=== PATIENT | female | born 1945 | race Caucasian/White ===

== ENCOUNTER → 2024-07-25 | Outpatient (CLI) | payer MEDICARE, MEDICAID, SELFPAY ==
--- NOTE | 2024-07-25 09:30 | XR_ITS ---
Examination: Diagnostic digital mammography, unilateral, right Computer aided detection 3-D breast Tomosynthesis, unilateral Date and time of exam: July 25, 2024 0933 hours INDICATIONS: Mammogram February 01, 2024 focal asymmetry upper outer right breast Technique: Nonmagnified MLO, CC views of the right breast have been obtained, reconstructed from 3-D Tomosynthesis images. R2 computer aided detection program utilized for evaluation of suspicious masses and/or abnormal calcifications. 3-D Tomosynthesis images obtained. Findings: Scattered areas of fibroglandular density. Stable focal asymmetry upper outer right breast Impression: BI-RADS category 2: Benign findings Return to yearly follow-up mammography
== END | disposition home or self-care (01) ==
LOC: CDIM 09:18
PROVIDERS: PCP Physician Assistant; Referring Provider Physician Assistant; Visit Provider Physician Assistant
DX: R92.321 Mammographic fibroglandular density, right breast (principal)
CPT/HCPCS: 77061; 77065; G0279

== ENCOUNTER 2024-09-14 08:00 | Day surgery (SDC) | payer MEDICARE, MEDICAID, SELFPAY ==
--- NOTE | 2024-09-13 10:43 | EKG_ITS ---
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
[2024-09-13 10:52] VITALS: BMI 25.0
[2024-09-13 11:34] LABS: Basophils % (Auto) 0 % (0-2.5); Eosinophils # (Auto) 0.1 Thou/mm3 (0.0-0.5); Eosinophils % (Auto) 1 % (0-10); Hematocrit 46.4 % (36.0-46.0); Hemoglobin 15.7 g/dL (12.0-16.0); Immature Granulocytes % (Auto) 0 % (0-0); Immature Granulocytes Auto 0.03 Thou/mm3 (0.00-0.00); Lymphocytes # (Auto) 1.5 Thou/mm3 (1.0-4.8); Lymphocytes % (Auto) 16 % (10-50); Mean Corpuscular HGB Conc 33.8 g/dl (31.0-37.0); Mean Corpuscular Hemoglobin 30.1 pg (25.0-35.0); Mean Corpuscular Volume 89 fL (80-100); Monocytes # (Auto) 0.8 Thou/mm3 (0.0-0.8); Monocytes % (Auto) 9 % (0-12); Neutrophils # (Auto) 6.9 Thou/mm3 (1.8-7.7); Neutrophils % (Auto) 74 % (37-80); Nucleated Red Blood Cell % 0 /100 WBC (0); Platelet Count 319 Thou/mm3 (140-440); RDW Standard Deviation 44.7 fL (36.4-46.3); Red Blood Count 5.21 Miln/mm3 (4.00-5.20); White Blood Count 9.3 Thou/mm3 (3.6-11.0)
[2024-09-13 11:50] LABS: INR 1.1 (0.9-1.3); Partial Thromboplastin Time 25.3 Seconds (22.0-36.0); Prothrombin Time 12.4 Seconds (9.0-12.2)
[2024-09-13 11:52] LABS: Alanine Aminotransferase 33 U/L (10-49); Albumin, Serum 5.9 gm/dL (3.4-4.8); Albumin/Globulin Ratio 2.8 (1.2-2.2); Alkaline Phosphatase 107 U/L (46-116); Anion Gap 12 (7-16); Aspartate Amino Transferase 31 U/L (0-34); BUN/Creatinine Ratio 19 Ratio (12-20); Bilirubin,Total 0.9 mg/dL (0.3-1.2); Blood Urea Nitrogen 15 mg/dL (9-23); Calcium 10.8 mg/dL (8.3-10.6); Calcium (Corrected) 10.8 mg/dL (8.5-10.1); Carbon Dioxide 26.7 mMol/L (20.0-31.0); Chloride 101 mMol/L (98-107); Creatinine (Component) 0.8 mg/dL (0.6-1.3); Globulin 2.1 gm/dL (2.3-3.5); Glucose 128 mg/dL (74-106); Osmolality,Calculated 282 (275-295); Potassium 3.6 mMol/L (3.4-5.1); Sodium 140 mMol/L (136-145); eGFR > 60 See Note
--- NOTE | 2024-09-13 14:59 | SUR.PREOP ---
Cardiac records reviewed with Dr Henry.
--- NOTE | 2024-09-13 15:02 | SUR.PREOP ---
Pt notified to come in at 0800 tomorrow for surgery.
[2024-09-14] VITALS (8 sets, daily range): BP systolic 127–146; BP diastolic 62–76; PULSE 83–96; RESP 15–20; TEMP 36.1–37; O2SAT 95–100; BMI 24.8
[2024-09-14] MEDS: RINGERS LACTATED 1000 ML 1,000 ML 20 ML IV (08:48)
--- NOTE | 2024-09-14 09:10 | CHAP ---
Patient expressed gratitude for prayer before their procedure.
--- NOTE | 2024-09-14 10:25 | SUR.PHASEI ---
1025: Pt. wakes to name then drifts back to sleep, vitals stable, breathing unlabored, no complaint of pain or nausea, dressing to left shoulder CDI, no active bleed noted, cap refill to bilateral fingers less than 3 seconds, bilateral radial pulses strong and regular, report received from MD Henry and Nilay ANTONIO.
--- NOTE | 2024-09-14 10:28 | PD.SUROPNT ---
Date of Procedure 09/14/24 Pre Op Diagnosis 1. Left rotator cuff tear 2 left shoulder impingement syndrome Post Op Diagnosis Same Procedure 1. Excision of the scar tissue and osteophytes from the lateral end of the clavicle 2 acromioplasty 3 repair of rotator cuff 4. Manipulation under anesthesia Findings Refer dictation Procedure Description The patient was given general endotracheal anesthesia. Left shoulder block was given as well. Once satisfactory anesthesia was achieved patient was put in about 45?? sitting position with sandbag underneath the left shoulder blade. The part was thoroughly prepped and draped. A skin incision was made at the AC joint extending proximally towards the neck for a half inches and distally towards the arm for about couple of inches. The skin incision was made over the previously placed eschar. Deeper dissection was carried out. Bleeding vessels were electrocoagulated as and when encountered. The soft tissue was reflected. Following that lateral end of the clavicle was exposed. It revealed a lot of scar tissue and osteophytes which were projecting inferiorly. The deltoid muscle was reflected from the anterior and lateral aspect of the acromial process. Following that with the help of bone rongeur and osteotome the osteophytes was removed. A scar tissue was also excised. With the help of bone rongeur the osteophytes from the current process was removed.. That made more room between the superior surface of the head of the humerus and undersurface of the acromial process. Following that the rotator cuff was inspected. It revealed an oval tear, however most of the fibers were attached to the greater tuberosity. Wound was irrigated with antibiotic solution every 4-5 minutes. The left shoulder was manipulated at this time. Full range of abduction and forward flexion was achieved. The rotator cuff tear was repaired with 2-0 Vicryl. 2 drill holes were made on the acromial process and deltoid muscle was stitched back to it. Some reinforcement sutures were placed. The subcutaneous tissue was then closed with the help of 2-0 Vicryl and 3-0 Vicryl in layers. The skin was closed with thomas. After cleaning the wound with hydrogel proximal solution and sterile dressing was applied. Patient was taken to the recovery room in good condition. Estimated blood loss 10 mL. Prognosis in this case is good. Anesthesia GETA and other Pathology / specimen None Estimated Blood Loss 10 Surgeon Pal De La Paz MD Surgical Staff Operation Date: 09/14/24 10:00 <No data on this case meets the specified criteria>
--- NOTE | 2024-09-14 16:36 | ESHP_ITS ---
RE: MATT LEMON : 1945 DATE OF ADMISSION: 09/14/2024 The patient came to my office on 09/13/2024 for detailed preop history and physical examination. HISTORY OF PRESENT ILLNESS: The patient has pain in the left shoulder. The patient graded intensity of pain to be 8-9/10. Range of motion severely restricted. The patient wants something to be done about it. The patient underwent left rotator cuff repair with Sonali procedure about 8 or 9 years back by myself. Basically, her quality of life and activities of daily living is affected. PAST MEDICAL HISTORY: History of high blood pressure, diabetes mellitus, and cholesterol as well. PAST SURGICAL HISTORY: Include a hysterectomy, both shoulder surgery. The left one was done in 2014 and the right one was done in 2018 by me. The patient also had right trigger thumb release and right cyst removed. DRUG HISTORY: 1. Alendronate. 2. Amlodipine. 3. Atorvastatin. 4. Gabapentin. 5. Hydrochlorothiazide. 6. Pantoprazole. ALLERGIES: NIL KNOWN. FAMILY HISTORY AND SOCIAL HISTORY: The patient denies smoking, drinking, and is not working. PHYSICAL EXAMINATION: GENERAL: Normal built lady. VITAL SIGNS: Pulse 88 per minute. Blood pressure 130/76. NECK: Soft, supple. No mass felt. Trachea is centrally replaced. CARDIOVASCULAR SYSTEM: First and second heart sounds normal. No murmur heard. RESPIRATORY SYSTEM: Bilateral vesicular breath sounds. Chest: Clear. ABDOMEN: Soft, supple, . Bowel sounds present. EXTREMITIES: Left shoulder examination reveals a scar of about 3 inches in size. There is 1+ tenderness. Active range of motion 0 to 80 degrees of abduction, 0 to 70 degrees of forward flexion. Internal rotation is severely restricted. DIAGNOSTIC DATA: MRI scan confirmed a torn rotator cuff with some degree of retraction. Since the patient is symptomatic affecting quality of life, therefore, left rotator cuff repair with Sonali pressure was discussed. I explained that there is a possibility that she may have a scar formation at the lateral end of the clavicle and osteophyte formation, which may be impinging on the rotator cuff. Detailed discussion took place. Risks, benefits, and limitations were explained. ASSESSMENT AND PLAN: 1. Risks with anesthesia were explained and that includes, but not limited to reaction to anesthetic agents, cardiac arrest, rarely it might be fatal. Risks with operation include infection and if that happens, the patient may need further surgical procedure. Other risks include delayed healing wound assessment, etc. 2. No guarantees given regarding outcome of the procedure and no relief of her symptoms. Appropriate lab work was done. DT: 15:14:57 TT: 16:34:00 Ref: [id number] - TID: [id number]
--- NOTE | 2024-09-14 19:11 | PD.ANESPROG ---
Documentation for date of: 09/14/24 ANESTHESIA NOTE: Patient had general LMA anesthesia with L interscalene nerve block for L rotator surgery earlier today. She did well intra-op and in PACU. Block was done using 20 cc of Ropivacaine 0.375%. Gerard Henry MD Anesthesia Progress Note Progress Note Most recent Vital Signs: Last Vital Signs Temp 97.1 F 09/14/24 11:20 Pulse 96 09/14/24 11:20 Resp 20 09/14/24 11:20 BP 146/70 H 09/14/24 11:20 Pulse Ox 95 09/14/24 11:20 O2 Flow Rate 2 09/14/24 10:40
== END 2024-09-14 11:22 | disposition home or self-care (01) ==
PROVIDERS: Anesthesiology; PCP Physician Assistant; Referring Provider Orthopaedic Surgery; Visit Provider Orthopaedic Surgery
PROC: (CPT 23412; principal; 2024-09-14 10:00)
DX: M75.102 Unspecified rotator cuff tear or rupture of left shoulder, not specified as traumatic (principal); M75.42 Impingement syndrome of left shoulder; E11.9 Type 2 diabetes mellitus without complications; Z01.810 Encounter for preprocedural cardiovascular examination; I10 Essential (primary) hypertension
CPT/HCPCS: 23412; 36415; 80053; 85025; 85610; 85730; 93005; A4217; A4649; J0690; J1100; J2250; J2704; J2765; J2795; J3010; J3490; J7120

== ENCOUNTER 2024-09-28 09:51 | Emergency (ER) | payer MEDICARE, MEDICAID, SELFPAY ==
--- NOTE | 2024-09-28 09:55 | EKG_ITS ---
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
[2024-09-28 10:06] VITALS: BP 149/76; PULSE 100; RESP 20; TEMP 36.4; O2SAT 96; BMI 25.0
--- NOTE | 2024-09-28 10:33 | XR_ITS ---
Examination: PA chest single view TECHNIQUE: Upright PA chest single view Exam date and time: September 28, 2024 1048 hours INDICATIONS: Onset chest pain beginning 3 days ago. FINDINGS: Normal heart size No pneumonia or pulmonary edema Moderate osteopenia IMPRESSION: No pneumonia or pulmonary edema
--- NOTE | 2024-09-28 10:33 | PD.EDRME ---
Rapid Medical Screening Exam RME Arrival date/time: 09/28/24 09:51 This is a 79-year-old female presents to the emergency department with complaints of left lateral chest pain. I have greeted and performed a focused initial assessment of this patient. Initial appropriate labs ordered at this time. A comprehensive ED assessment and evaluation of the patient and analysis of all test and completion of medical decision making process will be conducted by additional ED provider. Chief Complaint: Chest Pain Time Seen by Provider: 09/28/24 10:03 Vital signs: Vital Signs Temperature 97.6 F 09/28/24 10:06 Pulse Rate 100 09/28/24 10:06 Respiratory Rate 20 09/28/24 10:06 Blood Pressure 149/76 H 09/28/24 10:06 Pulse Oximetry (%) 96 09/28/24 10:06 Oxygen Delivery Method Room Air 09/28/24 10:06
[2024-09-28 10:59] LABS: Basophils % (Auto) 0 % (0-2.5); Eosinophils # (Auto) 0.1 Thou/mm3 (0.0-0.5); Eosinophils % (Auto) 1 % (0-10); Hematocrit 44.7 % (36.0-46.0); Hemoglobin 15.3 g/dL (12.0-16.0); Immature Granulocytes % (Auto) 0 % (0-0); Immature Granulocytes Auto 0.03 Thou/mm3 (0.00-0.00); Lymphocytes # (Auto) 1.4 Thou/mm3 (1.0-4.8); Lymphocytes % (Auto) 15 % (10-50); Mean Corpuscular HGB Conc 34.2 g/dl (31.0-37.0); Mean Corpuscular Hemoglobin 30.4 pg (25.0-35.0); Mean Corpuscular Volume 89 fL (80-100); Monocytes # (Auto) 0.8 Thou/mm3 (0.0-0.8); Monocytes % (Auto) 8 % (0-12); Neutrophils # (Auto) 7.3 Thou/mm3 (1.8-7.7); Neutrophils % (Auto) 76 % (37-80); Nucleated Red Blood Cell % 0 /100 WBC (0); Platelet Count 290 Thou/mm3 (140-440); RDW Standard Deviation 43.8 fL (36.4-46.3); Red Blood Count 5.04 Miln/mm3 (4.00-5.20); White Blood Count 9.6 Thou/mm3 (3.6-11.0)
[2024-09-28 11:10] LABS: INR 1.1 (0.9-1.3); Partial Thromboplastin Time 24.5 Seconds (22.0-36.0); Prothrombin Time 12.2 Seconds (9.0-12.2)
[2024-09-28 11:12] LABS: Alanine Aminotransferase 32 U/L (10-49); Albumin, Serum 5.5 gm/dL (3.4-4.8); Albumin/Globulin Ratio 2.5 (1.2-2.2); Alkaline Phosphatase 106 U/L (46-116); Anion Gap 10 (7-16); Aspartate Amino Transferase 27 U/L (0-34); B-Type Natriuretic Peptide < 20 pg/mL (0-100); BUN/Creatinine Ratio 14 Ratio (12-20); Bilirubin,Total 0.8 mg/dL (0.3-1.2); Blood Urea Nitrogen 11 mg/dL (9-23); Calcium 10.6 mg/dL (8.3-10.6); Calcium (Corrected) 10.6 mg/dL (8.5-10.1); Carbon Dioxide 26.5 mMol/L (20.0-31.0); Chloride 103 mMol/L (98-107); Creatinine (Component) 0.8 mg/dL (0.6-1.3); Globulin 2.2 gm/dL (2.3-3.5); Glucose 120 mg/dL (74-106); Lipase 43 U/L (12-53); Magnesium 2.3 mg/dL (1.6-2.6); Osmolality,Calculated 277 (275-295); Potassium 3.7 mMol/L (3.4-5.1); Sodium 139 mMol/L (136-145); Total Protein 7.7 gm/dL (5.7-8.2); Troponin I < 0.002 ng/mL (0.0-0.045); eGFR > 60 See Note
--- NOTE | 2024-09-28 12:08 | PD.EDCHEST ---
ED Chest Pain RME/HPI General Chief Complaint: Chest Pain Stated Complaint: Chest pain X 2 days, SOB Time Seen by Provider: 09/28/24 10:03 Arrival date/time: 09/28/24 09:51 RME / HPI RME / HPI narrative: 79-year-old female patient with significant history of diabetes mellitus hypertension, came in for evaluation regarding left anterior chest wall pain. Onset of symptoms for the last 2 days as sudden onset of pain to the left anterior chest wall, reproducible with palpation, severity mild. Patient denies any cough denies any shortness of breath denies any diaphoresis. Patient had recent shoulder surgery about 2 weeks ago. Related Data Home Medications ?Medication ?Instructions ?Recorded ?Confirmed pantoprazole 40 mg tablet,delayed 40 mg PO QDAY ##0 12/05/14 09/14/24 release (Protonix) atorvastatin 40 mg tablet (Lipitor) 40 mg PO HS #0 tabs 06/16/17 09/14/24 hydrochlorothiazide 25 mg tablet 25 mg PO QDAY 01/08/21 09/14/24 metformin 1,000 mg tablet 1,000 mg PO QDAY 01/08/21 09/14/24 alendronate 70 mg tablet 70 mg PO QWEEK 01/09/21 09/14/24 amlodipine 10 mg tablet 10 mg PO QDAY 03/01/23 09/14/24 cetirizine 10 mg tablet 10 mg PO QDAY 09/13/24 09/14/24 gabapentin 300 mg capsule 300 mg PO QDAY 09/13/24 09/14/24 ibuprofen 600 mg tablet 600 mg PO Q8H PRN Pain 09/13/24 09/14/24 Previous Rx's ?Medication ?Instructions ?Recorded naproxen 500 mg tablet (Naprosyn) 500 mg PO BID PRN pain #20 tabs 09/28/24 Allergies Allergy/AdvReac Type Severity Reaction Status Date / Time phenytoin Allergy Severe HIVES Verified 09/14/24 08:39 quinine Allergy Severe VOMITING Verified 09/14/24 08:39 sulfamethoxazole Allergy Severe VOMITING Verified 09/14/24 08:39 trimethoprim Allergy Severe VOMITING Verified 09/14/24 08:39 Review of Systems Review of Systems Narrative Review of Systems: Review of system reviewed and within normal limits except mentioned in HPI ED Exam Narrative Physical exam: VITAL SIGNS: Reviewed. GENERAL APPEARANCE: Alert and interactive, follows commands, no acute distress, HEAD AND FACE: Non-traumatic. ENT: PERRL, pink conjunctivitis, eyelid no trauma, Mucous membrane moist. NECK: + Left anterior chest wall tenderness, no crepitus, no paradoxical movement, no retractions. LUNGS: Clear, well ventilated, symmetric, no rales, no wheezing, no ronchi, no stridor, good breath sounds bilaterally. HEART: Regular rate, regular rhythm, no murmur, no gallops. ABDOMEN: Soft, positive bowel sounds, nondistended, no guarding, nontender, no rebound, no masses, RECTAL: Deferred. GENITAL: Deferred. NEUROLOGICAL: Gross motor function intact sensory function intact, Appropriate for age. MUSCULOSKELETAL: low back nontender, full range of motion. EXTREMITIES: Nontender, full range of motion. SKIN: Color pink, dry, no rash, no lacerations, no abrasions, no contusions. LYMPHATICS: Deferred. Course Quality Measures none Orders Category Date Time Status Special Ed Assistant STAT Care 09/28/24 10:33 Active Continuous Pulse Oximetry ONCE Care 09/28/24 10:33 Active EKG (ED ONLY) *Do not use* NOW Care 09/28/24 09:55 Completed Insert IV STAT Care 09/28/24 10:33 Active EKG (ED Only) Stat Exams 09/28/24 09:55 Draft XR chest 1V portable Stat Exams 09/28/24 10:33 Completed B-Type Natriuretic Peptide Stat Lab 09/28/24 10:46 Completed CBC Stat Lab 09/28/24 10:46 Completed Comprehensive Metabolic Panel Stat Lab 09/28/24 10:46 Completed Lipase Stat Lab 09/28/24 10:46 Completed Magnesium Stat Lab 09/28/24 10:46 Completed Partial Thromboplastin Time Stat Lab 09/28/24 10:46 Completed Prothrombin Time with INR Stat Lab 09/28/24 10:46 Completed Troponin I Stat Lab 09/28/24 10:46 Completed Oxygen Delivery NOW RT 09/28/24 10:33 Active Vital Signs Vital signs: Vital Signs Temperature 97.6 F 09/28/24 10:06 Pulse Rate 100 09/28/24 10:06 Respiratory Rate 20 09/28/24 10:06 Blood Pressure 149/76 H 09/28/24 10:06 Pulse Oximetry (%) 96 09/28/24 10:06 Oxygen Delivery Method Room Air 09/28/24 10:06 Chest Pain MDM Narrative MDM Narrative:: 79-year-old female patient with significant history of diabetes mellitus hypertension, came in for evaluation regarding left anterior chest wall pain. Onset of symptoms for the last 2 days as sudden onset of pain to the left anterior chest wall, reproducible with palpation, severity mild. Patient denies any cough denies any shortness of breath denies any diaphoresis. Patient had recent shoulder surgery about 2 weeks ago. Patient's cardiac workup all came back normal troponin is normal EKG unremarkable, chest x-ray also came back unremarkable. Repeat troponin is not needed patient is having chest wall pain for 2 days. Patient is probably having costochondritis since pain is reproducible on palpation. Patient appears nontoxic and hemodynamically stable. Patient discharged home and instructed to follow-up with primary care provider in 24 to 48 hours. Instructed to return to the emergency department immediately if worsening of symptoms Patient data External records reviewed:: None Clinical information provided by:: patient Social determinants that could affect healthcare access:: none Patient has the following chronic illnesses:: Diabetes hypertension How is presenting disease/condition affected by chronic disease/condition?: exacerbated by Evaluation data The following diagnostics were reviewed and interpreted by me:: lab results, radiology exam(s) and EKG tracing(s) Lab and/or radiology exams considered but not ordered:: None Interpretation Summary: I personally reviewed and interpreted the x-ray of this patient. There is no acute abnormalities found, no infiltrates no pneumothorax no hemothorax normal chest x-ray. Review of other structures was without significant abnormal findings also. I additionally reviewed the radiologist report and agree with the interpretation.. Laboratory workup all came back normal normal troponin. EKG as interpreted by me showed normal sinus rhythm, ventricular rate of 92 bpm, no ST segment elevation or depression noted. Medications / Prescriptions Medications or Prescriptions considered but not ordered:: None Medication administrations:: None Consultations Consultation(s) initiated? (list below): No Diagnosis Chest Pain Differential Diagnosis: pneumothorax, atypical chest pain and costochondritis Most likely diagnosis given after review of the tests above:: Costochondritis Admission Indicated Admission indicated?: not indicated Explain why admission is indicated or not indicated:: Stable Admission Request Was there a request for admission?: No Disposition Plan Disposition Plan: Discharge Discharge Attestation Discharge Attestation: The patient was given an opportunity to ask questions and understood the discharge instructions. Discharge instructions specifically effects, indications for sooner follow up or return to the emergency department, and the expected course of current diagnosis. Patient condition: Stable Discharge Plan Plan Patient Disposition: HOME (Self Care) Disposition Comment: stable Prescriptions/Referrals Prescriptions/Med Rec: New naproxen [Naprosyn] 500 mg tablet 500 mg PO BID PRN (Reason: pain) Qty: 20 0RF No Action amlodipine 10 mg tablet 10 mg PO QDAY pantoprazole [Protonix] 40 MG tablet,delayed release (DR/EC) 40 mg PO QDAY Qty: 0 Patient Comments: TO SUPPRESS GASTRIC SECRETIONS atorvastatin [Lipitor] 40 MG tablet 40 mg PO HS Qty: 0 metformin 1,000 mg Tablet 1,000 mg PO QDAY hydrochlorothiazide 25 mg tablet 25 mg PO QDAY alendronate 70 mg tablet 70 mg PO QWEEK cetirizine 10 mg Tablet 10 mg PO QDAY gabapentin 300 mg Capsule 300 mg PO QDAY ibuprofen 600 mg Tablet 600 mg PO Q8H PRN (Reason: Pain) Problem List Clinical Impression: Costochondritis Patient/Caregiver Discharge Instructions Discharge Activity: activity as tolerated Education Materials: ED Chest Wall Pain, Costochondritis Additional Instructions: Thank you for the opportunity for serving you today. You are stable for discharged . You are advised to: Follow-up with your marketing lead as instructed Return to ED for worsening of symptoms Increase oral fluids Take medication as prescribed Print Language: Latvian Stand Alone Forms: [employer] Award Info., Patient Portal Info Letter
[2024-09-28 12:30] VITALS: BP 125/73; PULSE 86; RESP 18; TEMP 36.5; O2SAT 97
== END 2024-09-28 12:30 | disposition home or self-care (01) ==
LOC: SERX 12:15
PROVIDERS: Nurse Practitioner Primary Care; Emergency Provider Emergency Medicine; PCP Physician Assistant
DX: M94.0 Chondrocostal junction syndrome [Tietze] (principal); E11.9 Type 2 diabetes mellitus without complications; I10 Essential (primary) hypertension
CPT/HCPCS: 36415; 71045; 80053; 83690; 83735; 83880; 84484; 85025; 85610; 85730; 93005; 99283

== ENCOUNTER 2025-07-31 01:14 | Inpatient (IN) | payer MEDICARE, MEDICAID, SELFPAY ==
[2025-07-31] VITALS (13 sets, daily range): BP systolic 123–153; BP diastolic 60–75; PULSE 82–103; RESP 16–96; TEMP 36.1–36.8; O2SAT 89–98; BMI 26.9; BMI 26.8; BMI 11.0
--- NOTE | 2025-07-31 | XR_ITS ---
Examination: MRI lumbar spine without contrast Date and time of exam: July 31, 2025, 1118 hours, comparison April 05, 2024 INDICATIONS: Severe lower back pain after injury yesterday TECHNIQUE: Multiple MRI axial sagittal images lumbar spine FINDINGS: Adequate alignment lumbar vertebral bodies No lumbar fracture Diffuse lumbar disc desiccation. Moderate degenerative disc disease L1-2, L2-L3, L5-S1 L5-S1 6 mm central lumbar disc bulge contiguous with the S1 nerve roots L4-L5 severe overall spinal stenosis, axial image 5, 5 mm central lumbar disc bulge, facet arthropathy and thickening of ligamentum flavum circumferentially severely narrowing the thecal sac L3-L4 no disc protrusion L2-L3 foraminal disc bulges but no ganglionic compression L1-L2 no disc protrusion Impression: L5-S1 6 mm central lumbar disc bulge contiguous with the right and left S1 nerve roots L4-L5 severe overall spinal stenosis as above
--- NOTE | 2025-07-31 01:23 | PD.EDBACK ---
ED Back Injury Pain RME/HPI General Chief Complaint: Back Pain/Injury Stated Complaint: BACK PAIN Time Seen by Provider: 07/31/25 01:23 Arrival date/time: 07/31/25 01:14 RME / HPI RME / HPI Narrative: Dr. Kang?s Main ED Evaluation: 80yo female KATIUSKA from home presents to the ED for a chief complaint of lower back pain x 1600. Patient states she started having lower back spasms at 1600 after she was doing back stretches that were suggested by physical therapy. Patient denies any falls or injuries. Denies any abdominal pain or any other associated symptoms. Denies any history of similar symptoms. Patient denies fecal or urinary retention or incontinence. No radiation of pain down the legs. Related Data Home Medications ?Medication ?Instructions ?Recorded ?Confirmed pantoprazole 40 mg tablet,delayed 40 mg PO QDAY ##0 12/05/14 09/14/24 release (Protonix) atorvastatin 40 mg tablet (Lipitor) 40 mg PO HS #0 tabs 06/16/17 09/14/24 hydrochlorothiazide 25 mg tablet 25 mg PO QDAY 01/08/21 09/14/24 metformin 1,000 mg tablet 1,000 mg PO QDAY 01/08/21 09/14/24 alendronate 70 mg tablet 70 mg PO QWEEK 01/09/21 09/14/24 amlodipine 10 mg tablet 10 mg PO QDAY 03/01/23 09/14/24 cetirizine 10 mg tablet 10 mg PO QDAY 09/13/24 09/14/24 gabapentin 300 mg capsule 300 mg PO QDAY 09/13/24 09/14/24 ibuprofen 600 mg tablet 600 mg PO Q8H PRN Pain 09/13/24 09/14/24 Previous Rx's ?Medication ?Instructions ?Recorded naproxen 500 mg tablet (Naprosyn) 500 mg PO BID PRN pain #20 tabs 09/28/24 Allergies Allergy/AdvReac Type Severity Reaction Status Date / Time phenytoin Allergy Severe HIVES Verified 09/14/24 08:39 quinine Allergy Severe VOMITING Verified 09/14/24 08:39 sulfamethoxazole Allergy Severe VOMITING Verified 09/14/24 08:39 trimethoprim Allergy Severe VOMITING Verified 09/14/24 08:39 Review of Systems Review of Systems Systems Reviewed: All systems reviewed, normal except as documented Past Medical History Past Medical History NEUROLOGIC: Positive Neurological Disorders and Migraine; Negative Seizures CARDIAC: Positive Cardiac Disorders, Hypercholesterolemia and Hypertension; Negative Congestive Heart Failure RESPIRATORY: Negative Chronic Obstructive Pulmonary Disease (COPD) GASTROINTESTINAL: Positive Gastrointestinal Disorders and Gastroesophageal Reflux Disease GENITOURINARY: Negative Genitourinary Disorders or Renal Disease REPRODUCTIVE: Positive Previous Pregnancies MUSCULOSKELETAL: Positive Musculoskeletal Disorders, Arthritis, Osteoporosis and Fractures (left arm as a child) ENT: Positive Cataracts (bilateral) ENDOCRINE: Positive Endocrine Disorders and Diabetes Mellitus Type 2; Negative Diabetes Mellitus Type 1 HEMATOLOGIC: Negative Blood Disorders OTHER HISTORY: Positive Hospitalization, Shingles, Chicken Pox, Measles and Mumps; Negative Autoimmune Disease, Falls, Blood Transfusions, Anesthesia Reactions, MRSA or Cancer Family History FAMILY HISTORY: Positive Family Surgery; Negative Family Psychiatric Problems, Family Respiratory Disorders, Family Cardiac Disorders, Family Gastrointestinal Problems, Family Cancer or Family Anesthesia Reaction Surgical History SURGICAL: Positive Hysterectomy; Negative Eye Surgery Social History SMOKING STATUS: Never smoker ED Exam Narrative Physical exam: Generally patient is alert oriented in moderate distress secondary to pain, heart regular rate and rhythm, lungs clear to auscultation equal bilaterally, abdomen soft bowel sounds present nondistended nontender neurologic exam shows no focal neurologic deficit. No saddle anesthesia. No fecal or urinary retention or incontinence. Musculoskeletal exam shows the patient palpatory tenderness across the sacrum at the sacroiliac joints bilaterally. Course Quality Measures none Orders Category Date Time Status MRI Screening NOW Care 07/31/25 03:24 Active MR lumbar spine wo con Stat Exams 07/31/25 Ordered CBC Stat Lab 07/31/25 03:24 Ordered CMP [Comprehensive Metabolic Panel] Stat Lab 07/31/25 03:24 Ordered Dexamethasone Inj [Decadron Inj] Med 07/31/25 01:24 Discontinued 10 mg IVP X1 ONE Diazepam Inj [Valium Inj] Med 07/31/25 02:36 Discontinued 5 mg IVP X1 ONE Ketorolac Inj [Toradol Inj] Med 07/31/25 01:24 Discontinued 15 mg IVP X1 ONE Morphine* Inj Med 07/31/25 01:24 Discontinued 4 mg IVP X1 ONE Vital Signs Vital signs: Vital Signs Temperature 98.2 F 07/31/25 01:21 Pulse Rate 100 07/31/25 01:21 Respiratory Rate 28 H 07/31/25 01:21 Blood Pressure 136/60 H 07/31/25 01:21 Pulse Oximetry (%) 92 L 07/31/25 01:21 Oxygen Delivery Method Room Air 07/31/25 01:21 Back Pain / Injury [facility] Narrative [facility] Narrative:: Scribe Attestation: 07/31/25 - Nori Johnston am scribing for and in the presence of Dr. Kang. Patient received Decadron 10 mg IV, Toradol 15 mg IV and morphine 4 mg IV with partial benefit. Patient did receive Valium 5 mg IV with partial benefit. Patient is 80 years old and lives at home alone. There is no clinical evidence for cauda equina syndrome. Patient will require admission to the hospital for further treatment and evaluation for her intractable back pain. I have ordered an MRI of her lumbosacral spine and the patient will need to undergo physical therapy consultation while here in the hospital. I did discuss this case with the hospitalist. Baseline lab work was ordered and pending. Patient data External records reviewed:: [facility] previous records (Per chart review, patient was seen here on 09/28/24 for costochondritis.) and EMS form Clinical information provided by:: patient and EMS Social determinants that could affect healthcare access:: none Patient has the following chronic illnesses:: DM, HTN, HLD How is presenting disease/condition affected by chronic disease/condition?: uneffected by Evaluation data The following diagnostics were reviewed and interpreted by me:: lab results and radiology exam(s) Lab and/or radiology exams considered but not ordered:: none Interpretation Summary: See [facility] Medications / Prescriptions Medications or Prescriptions considered but not ordered:: none Medication administrations:: Medication Administration History Discontinued Medications Dexamethasone Sodium Phosphate (Dexamethasone Sod Phos Inj 10 Mg/Ml Vial) 10 mg IVP X1 ONE Stop: 07/31/25 01:25 Last Admin: 07/31/25 01:46 Dose: 10 mg Documented By: KASEY Diazepam (Diazepam Inj 5 Mg/Ml Vial 2 Ml) 5 mg IVP X1 ONE Stop: 07/31/25 02:37 Ketorolac Tromethamine (Ketorolac Inj 30 Mg/Ml Vial) 15 mg IVP X1 ONE Stop: 07/31/25 01:25 Last Admin: 07/31/25 01:48 Dose: 15 mg Documented By: KASEY Morphine Sulfate (Morphine Sulf Inj 4 Mg/Ml Vial) 4 mg IVP X1 ONE Stop: 07/31/25 01:25 Last Admin: 07/31/25 01:48 Dose: 4 mg Documented By: CB see above Consultations Consultation(s) initiated? (list below): No Diagnosis Differential diagnosis back pain/injury: other (See MDM) Most likely diagnosis given after review of the tests above:: see clinical impression below Admission Indicated Admission indicated?: indicated Admission Request Was there a request for admission?: Yes Admission Attestation Admission request attestation: Discussed case with [] from Hospitalist service regarding admission. Discussed patients ED course, exam findings, labs, and radiology results. The Hospitalist [agrees,declines] to accept the patient for admission. Disposition Plan Disposition Plan: Admit Discharge Plan Plan Patient Disposition: Admit Acute Care w/in Hospital Prescriptions/Referrals Prescriptions/Med Rec: No Action amlodipine 10 mg tablet 10 mg PO QDAY pantoprazole [Protonix] 40 MG tablet,delayed release (DR/EC) 40 mg PO QDAY Qty: 0 Patient Comments: TO [employer] atorvastatin [Lipitor] 40 MG tablet 40 mg PO HS Qty: 0 metformin 1,000 mg Tablet 1,000 mg PO QDAY hydrochlorothiazide 25 mg tablet 25 mg PO QDAY alendronate 70 mg tablet 70 mg PO QWEEK cetirizine 10 mg Tablet 10 mg PO QDAY gabapentin 300 mg Capsule 300 mg PO QDAY ibuprofen 600 mg Tablet 600 mg PO Q8H PRN (Reason: Pain) naproxen [Naprosyn] 500 mg tablet 500 mg PO BID PRN (Reason: pain) Qty: 20 0RF Problem List Clinical Impression: Intractable back pain Patient/Caregiver Discharge Instructions Print Language: Mongolian Stand Alone Forms: [employer] Award Info., Patient Portal Info Letter
[2025-07-31] MEDS: DEXAMETHASONE SOD PHOS INJ 10 MG/ML VIAL IVP (01:46)
[2025-07-31] MEDS: KETOROLAC INJ 30 MG/ML VIAL 15 MG IVP (01:48)
[2025-07-31] MEDS: MORPHINE SULF INJ 4 MG/ML VIAL IVP (01:48)
[2025-07-31] MEDS: DIAZEPAM INJ 5 MG/ML VIAL 2 ML IVP (03:29)
[2025-07-31 03:58] LABS: Basophils # (Auto) 0.0 Thou/mm3 (0.0-0.2); Basophils % (Auto) 0 % (0-2.5); Eosinophils # (Auto) 0.0 Thou/mm3 (0.0-0.5); Eosinophils % (Auto) 0 % (0-10); Hematocrit 41.5 % (36.0-46.0); Hemoglobin 13.7 g/dL (12.0-16.0); Immature Granulocytes Auto 0.12 Thou/mm3 (0.00-0.00); Lymphocytes # (Auto) 0.6 Thou/mm3 (1.0-4.8); Lymphocytes % (Auto) 3 % (10-50); Mean Corpuscular HGB Conc 33.0 g/dl (31.0-37.0); Mean Corpuscular Hemoglobin 29.0 pg (25.0-35.0); Mean Corpuscular Volume 88 fL (80-100); Monocytes # (Auto) 1.2 Thou/mm3 (0.0-0.8); Monocytes % (Auto) 5 % (0-12); Neutrophils # (Auto) 21.0 Thou/mm3 (1.8-7.7); Neutrophils % (Auto) 92 % (37-80); Nucleated Red Blood Cell # 0.00 Thou/mm3 (0.00-0.00); Nucleated Red Blood Cell % 0 /100 WBC (0); Platelet Count 241 Thou/mm3 (140-440); RDW Standard Deviation 46.4 fL (36.4-46.3); Red Blood Count 4.72 Miln/mm3 (4.00-5.20); White Blood Count 23.0 Thou/mm3 (3.6-11.0)
[2025-07-31 04:08] LABS: Alanine Aminotransferase 36 U/L (10-49); Albumin, Serum 4.9 gm/dL (3.4-4.8); Albumin/Globulin Ratio 2.5 (1.2-2.2); Alkaline Phosphatase 114 U/L (46-116); Anion Gap 10 (7-16); Aspartate Amino Transferase 37 U/L (0-34); BUN/Creatinine Ratio 17 Ratio (12-20); Bilirubin,Total 0.7 mg/dL (0.3-1.2); Blood Urea Nitrogen 12 mg/dL (9-23); Calcium 9.2 mg/dL (8.3-10.6); Calcium (Corrected) 9.2 mg/dL (8.5-10.1); Carbon Dioxide 26.6 mMol/L (20.0-31.0); Chloride 103 mMol/L (98-107); Creatinine (Component) 0.7 mg/dL (0.6-1.3); Estimated Creatinine Clearance 54.7 mL/min (>60); Globulin 2.0 gm/dL (2.3-3.5); Glucose 176 mg/dL (74-106); Osmolality,Calculated 283 (275-295); Potassium 3.8 mMol/L (3.4-5.1); Sodium 140 mMol/L (136-145); Total Protein 6.9 gm/dL (5.7-8.2); eGFR > 60 See Note
--- NOTE | 2025-07-31 04:41 | ESHP_ITS ---
<Statement entered by Silvia Russell MD - 07/31/25 05:55> Patient is 80 yr female with PMH of sciatica, osteopenia, DM2 (no insulin), hypertension, hypercholesterolemia, GERD BIBA from home due to back pain. She was completing PT exercises and hyperextended back. Pain onset occurred few hours later. She denies any falls, no incontinence, dysuria. Unable to get up from hospital bed due to the pain. LE sensation intact, normal sphincter tone. WBC 23, no fever, no dyspnea. Will complete workup to rule out infectious etiolgy but most likely reactive to pain. Admit for intractable back pain, ordered PT, topical pain medication, f/u with MRI. Note reviewed, I agree with most of its contents and agree with the patient's care as documented by Dr. Villalba. The patient's management plan was discussed with my attending physician Dr. Putnam. Silvia Russell, PGY-2 Documentation for date of: 07/31/25 HPI History of Present Illness History of present illness: 80yo female pmhx sciatica, osteopenia, DM2 (no insulin), hypertension, hypercholesterolemia, GERD BIBA from home presents to the ED for a chief complaint of intractable lower back pain. Admitted for intractable lower back pain. ED Course Summary Vitals: BP 136/60 HR 100 RR 28 T 98.2F O2 sat 92% RA Labs: WBC 23 CMP wnl Imaging: pending MRI Treatment: Diazepam 5mg, ketorolac 15mg, morphine 4mg, dexamethasone 10mg Upon initial interview, patient is sitting in right lateral decubitus position in the [facility] because laying flat on her back was too uncomfortable for her. She states that she was doing backward bend stretches as recommended per her physical therapist she was referred to by neurologist Dr. Menon for her sciatica. Initially after the exercise she felt fine, then later on she began feeling muscular tightness and worsening pain preventing her ability to ambulate. Patient denies any falls or injuries. Denies any abdominal pain or any other associated symptoms. Denies any history of similar symptoms. Patient denies fecal or urinary retention or incontinence. No radiation of pain down the legs. Denies any motor or sensory deficits. Mobility exclusively limited by lwoer back pain. Code: Full Insulin: Never Medical Hx: Please see one-liner above please Medications: Cetirizine 10mg, Atorvastatin 40mg Allergies: phenytoin (hives), quinine (vomiting), sulfamethoxazole (vomiting), trimethoprim (vomiting) Surgical history: Hysterectomy, multiple bilateral shoulder surgery, multiple wrist surgeries for cysts. Fhx: Noncontributory Living: byself in mobile home, daughter lives in [place] Work: retired, former cleaning lady Alcohol: Denies Cigarettes/tobacco: Denies Recreational drugs: Denies All 12 systems reviewed and were negative except otherwise stated in HPI. Exam Vital Signs Temp Pulse Resp BP Pulse Ox O2 Del Method 98.1 F 102 H 18 142/72 H 92 L Room Air 07/31/25 01:22 07/31/25 01:22 07/31/25 01:07/31/25 01:22 07/31/25 01:07/31/25 01:22 Narrative Exam GENERAL APPEARANCE: AOx4. Right lateral decubitus to minimize discomfort. NAD, activity normal for age, well developed/ well nourished, no cyanosis, pallor, or diaphoresis. HEENT: Normocephalic atraumatic, no facial trauma, neck is supple. Lids/conjunctiva normal. Mucous membranes moist, nares normal, lips/teeth normal uvula midline without oral pharyngeal erythema, exudate or swelling TMs normal bilaterally. No lymphangitis/lymphedema. CARDIAC: Regular rate and rhythm, S1+S2 heard. No murmurs, rubs, or gallops noted RESPIRATORY: respiratory effort normal, speaks in full sentences, no tripod position, no accessory muscle use. Lungs clear to auscultation without rhonchi, wheezes, rales ABDOMINAL: NBS. Soft, ND/NT. No evidence of fluid wave. No pulsatile masses on exam, rebound tenderness, Bonilla sign or pain over Mcburney's point. MUSCLES/EXTREMITIES: No abnormal range of motion, no swelling. DERM: Warm, pink and dry. No rashes, dermatoses, petechiae or lesions. NEUROLOGICAL: Speech is clear and appropriate. Normal level of consciousness. Gait and coordination are normal. 5/5 strength in all extremities. PSYCH: Normal mood and affect. Judgement/competence is appropriate SPINE: Paraspinal tenderness at lumbral sacral area - improved with palpation. No spinal tenderness. No radiating symptoms. No sensory or motor deficits. Sphincter tone intact. Results: Labs 07/31/25 03:37 07/31/25 03:37 Labs: Short CBC 07/31/25 Range/Units 03:37 WBC 23.0 H (3.6-11.0) Thou/mm3 Hgb 13.7 (12.0-16.0) g/dL Hct 41.5 (36.0-46.0) % Plt Count 241 (140-440) Thou/mm3 BMP 07/31/25 03:37 Sodium 140 Potassium 3.8 Chloride 103 Carbon Dioxide 26.6 BUN 12 Creatinine 0.7 Glucose 176 H Calcium 9.2 Liver Function 07/31/25 Range/Units 03:37 Total Bilirubin 0.7 (0.3-1.2) mg/dL AST 37 H (0-34) U/L ALT 36 (10-49) U/L Alkaline Phosphatase 114 (46-116) U/L Albumin 4.9 H (3.4-4.8) gm/dL Quality Measures Quality Measures VTE prophylaxis Advance care planning discussed with:: patient Medications Home Medications and Allergies Home Medications ?Medication ?Instructions ?Recorded ?Confirmed ?Type pantoprazole 40 mg tablet,delayed 40 mg PO QDAY ##0 07/31/25 History release (Protonix) atorvastatin 40 mg tablet (Lipitor) 40 mg PO HS #0 tab s 06/16/17 07/31/25 History hydrochlorothiazide 25 mg tablet 25 mg PO QDAY 1 07/31/25 History metformin 1,000 mg tablet 1,000 mg PO QDAY 01/08/21 History alendronate 70 mg tablet 70 mg PO QWEEK 01/09/2107/07 History amlodipine 10 mg tablet 10 mg PO QDAY 03/01/2307/31 History cetirizine 10 mg tablet 10 mg PO QDAY 09/13/2407/31 History ibuprofen 600 mg tablet 600 mg PO Q8H PRN Pain 09/1307/31/25 History duloxetine 30 mg capsule,delayed 30 mg PO BID 07/31/25 07/31/25 History release pregabalin 100 mg capsule 100 mg PO 3XD 07/31/2507/31 History Allergies Allergy/AdvReac Type Severity Reaction Status Date / Time phenytoin Allergy Severe HIVES Verified 09/14/24 08:39 quinine Allergy Severe VOMITING Verified 09/14/24 08:39 sulfamethoxazole Allergy Severe VOMITING Verified 09/14/24 08:39 trimethoprim Allergy Severe VOMITING Verified 09/14/24 08:39 Visit Medications Acetaminophen (Acetaminophen 325 Mg Tablet) 650 mg PO Q6H PRN PRN Reason: Fever >100.4 or pain 1-3 Stop: 08/30/25 04:29 Hydrocodone Bitart/Acetaminophen (Hydrocodone/Apap 5/325 Tablet) 1 tab PO Q4HR PRN PRN Reason: PAIN SCALE 4-6 (Moderate Stop: 08/05/25 04:29 Docusate Sodium (Docusate Sod 100 Mg Capsule) 100 mg PO QDAY [facility]; Protocol Stop: 08/30/25 08:59 Famotidine (Famotidine Inj 10 Mg/Ml Vial 2 Ml) 20 mg IVP Q12HR [facility] Stop: 08/30/25 08:59 Heparin Sodium (Porcine) (Heparin Sod Inj 5000 Unit/Ml Vial) 5,000 unit SC Q12HR [facility] Stop: 08/14/25 08:59 Lidocaine (Lidocaine 5% 1 Patch) 1 patch TOP Q8HR PRN PRN Reason: pain 1-10 Stop: 08/30/25 04:38 Morphine Sulfate (Morphine Sulf Inj 4 Mg/Ml Vial) 2 mg IVP Q4HR PRN PRN Reason: PAIN SCALE 7-10 (Severe Stop: 08/05/25 04:29 Ondansetron HCl (Ondansetron Inj 2 Mg/Ml Inj 2 Ml) 4 mg IVP Q6H PRN; Protocol PRN Reason: NAUSEA OR VOMITING Stop: 08/30/25 04:29 Discontinued Medications Dexamethasone Sodium Phosphate (Dexamethasone Sod Phos Inj 10 Mg/Ml Vial) 10 mg IVP X1 ONE Stop: 07/31/25 01:25 Last Admin: 07/31/25 01:46 Dose: 10 mg Diazepam (Diazepam Inj 5 Mg/Ml Vial 2 Ml) 5 mg IVP X1 ONE Stop: 07/31/25 02:37 Last Admin: 07/31/25 03:29 Dose: 5 mg Ketorolac Tromethamine (Ketorolac Inj 30 Mg/Ml Vial) 15 mg IVP X1 ONE Stop: 07/31/25 01:25 Last Admin: 07/31/25 01:48 Dose: 15 mg Morphine Sulfate (Morphine Sulf Inj 4 Mg/Ml Vial) 4 mg IVP X1 ONE Stop: 07/31/25 01:25 Last Admin: 07/31/25 01:48 Dose: 4 mg Assessment & Plan Plan 80yo female pmhx sciatica, osteopenia, DM2 (no insulin), hypertension, hypercholesterolemia, GERD BIBA from home presents to the ED for a chief complaint of intractable lower back pain. Admitted for intractable lower back pain. Patient will need PT eval and pain management. #Intractable Back pain #Inability to stand up 2/2 pain #Hx of sciatica #Hx of osteopenia ddx paravertebral muscle cramping, spondylolisthesis, spondylolysis Sitting in right lateral decubitus position in the [facility] because laying flat on her back was too uncomfortable for her. She states that she was doing backward bend stretches as recommended per her physical therapist and was initially fine but gradually got worsening stiffness and pain. Patient denies any falls or injuries. Denies any abdominal pain or any other associated symptoms. Denies any history of similar symptoms. Patient denies fecal or urinary retention or incontinence. No radiation of pain down the legs. Denies any motor or sensory deficits. Mobility exclusively limited by lwoer back pain. Physical exam had interesting results where she had paraspinal tenderness at lumbral sacral area - improved with palpation. No spinal tenderness. No radiating symptoms. No sensory or motor deficits. Sphincter tone intact. She reports her sensitive areas improved with deep palpation of the muscular paraspinal tissues - like a mini- massage. MRI ordered still pending. Of note patient has a history of sciatica but currently completely denies all radiating symptoms. Plan: -PT referral placed -Ambulate patient TID -FUP MRI:___ -Lidocaine 5% patch QD -Tylenol 650mg PO PRN pain 1-3 -Narco 5 Q4hr PRN pain 4-6 -Morphine inj 2mg IVP Q4hr PRN pain 7-10 -Home duloxetine 30mg PO BID -Home Gabapentin 100mg PO TID -Home alendronate 70 mg PO Q7D #Leukocytosis #Bandemia WBC elevated 23. No B symptoms, such as cough, fever, chills, night sweats, or dysuria. Most likely reactive to pain since she has no infectious symptoms. Plan: -FUP CXR -FUP procal:___ -FUP UA:____ -FUP COVID screen:__ -FUP flu:__ #DM2 non insulin Metformin 1000mg home Plan: -ISS step 1 -Carb consistent diet #HTN Plan: -Amlodipine 10mg PO QD -HCTZ 25 mg PO QD #Hx of Hypercholesterolemia Plan: -Atorvastatin 40mg PO HS Health Maintenance: Code status: Full DVT prophylaxis: Heparin subq GI prophylaxis: Famotidine 20mg IVP Q12hr Diet: Carb consistent Beard: Diaper Lines: PIV Supplemental O2: NC Disposition: To med surg for intractable back pain Patient seen and reviewed with attending Dr. Putnam and my amazing senior resident Dr. Silvia Russell. Note written by Leo Villalba MD PGY-1 Attending Provider Attestation/Addendum After examination of the patient and review of the clinical data I feel that this patient needs admission to the hospital for further treatment/evaluation. Plan of care discussed with patient and is in agreement. I Elsi Putnam MD, attest that I was physically present for choudhury portions of evaluation, and examined patient, labs and imagings and plan of care were discussed with IM residents team, and I agree with the findings and plans documented above.
--- NOTE | 2025-07-31 05:13 | XR_ITS ---
EXAMINATION: AP chest single view TECHNIQUE: AP portable upright chest single view Date and time: July 31, 2025, 0552 hours, comparison September 28, 2024 INDICATIONS: Leukocytosis.Today FINDINGS: Normal heart size Subsegmental atelectasis in the right mid and lower lung zone No lobar pneumonia No pulmonary edema Prominent osteopenia IMPRESSION: No lobar pneumonia identified
[2025-07-31] MEDS: ALENDRONATE SODIUM 70 MG TABLET PO (06:17)
[2025-07-31] MEDS: GABAPENTIN 100 MG CAPSULE PO ×2 (06:17→13:41)
[2025-07-31 07:19] LABS: Influenza A Ag Negative; Influenza B Ag Negative
[2025-07-31 07:26] LABS: Magnesium 2.0 mg/dL (1.6-2.6); Phosphorous 3.3 mg/dL (2.4-5.1)
[2025-07-31] MEDS: INSULIN LISPRO (AdmeLOG) 1 UNIT/0.01 ML UNIT SC (08:37)
[2025-07-31] MEDS: DOCUSATE SOD 100 MG CAPSULE PO (09:03)
[2025-07-31] MEDS: DULoxetine HCL 30 MG CAPSULE PO ×2 (09:03→21:51)
[2025-07-31] MEDS: HEPARIN SOD INJ 5000 UNIT/ML VIAL SC ×2 (09:04→21:52)
[2025-07-31] MEDS: FAMOTIDINE INJ 10 MG/ML VIAL 2 ML 20 MG IVP ×2 (09:04→21:51)
[2025-07-31] MEDS: LIDOCAINE 5% 1 PATCH TOP (09:05)
[2025-07-31] MEDS: HYDROcodone/APAP 5/325 TABLET 1 TAB PO ×2 (09:19→17:43)
--- NOTE | 2025-07-31 09:47 | PC.SS ---
Follow up note: MRI pending.
[2025-07-31] MEDS: MORPHINE SULF INJ 4 MG/ML VIAL 2 MG IVP ×3 (10:49→23:04)
--- NOTE | 2025-07-31 11:07 | PC.SS ---
SS met with patient regarding her d/c plan. Pt is alert/oriented. Pt was admitted for Intractable Back Pain. Pt confirmed demographic is correct on facesheet. Pt states she will be changing her phone number to [phone]. Pt resides alone. Pt ambulates independently without assistance or DME. Pt is ok with all ADLs. Pt does not utlize O2 at home. Pt is currently on 2 liters of O2. Patient?s pharmacy of choice is [facility]. Pt named her dtrTricia medical decision maker if she is unable. SS provided verbal d/c options for home or SNF. Patient?s choice is to return home upon d/c. Pt states she has appointments arranged with PCP every 2 months. Tricia Sanchez will provide transportation home. D/C plan: Return home Next of Kin: Tricia Gonzalez dtr, phone# [phone] PCP: Dr. Kimberly Pereyra Address: Correct on facesheet
[2025-07-31] MEDS: PREGABALIN 50 MG CAPSULE 100 MG PO ×2 (14:56→21:51)
--- NOTE | 2025-07-31 16:44 | ESCONSULT_ITS ---
HPI Data of Consult Consult date: 07/31/25 Requesting Physician: Mala Bernardo DO Admitting Provider: Elsi Putnam MD Attending Provider: Davidson Menon MD Primary Care Provider: Kimberly Pereyra PA-C Consult Narrative Reason for consult: intractable back pain History of present illness: 80 yr female with PMH of sciatica, osteopenia, DM2 (no insulin), hypertension, hypercholesterolemia, GERD who presented to the ED due to back pain. Patient was doing Physical therapy and hyperextended her back and later developed progressive back pain. Patient endorses that certain positions exacerbate her pain. Patient has previous MRI from 2023 which shows multiple disc herniations and is currently on Duloxetine and Lyrica. She also has been on physical therapy as an OP. She denies any fever, chills, falls or recent injuries to her back, urinary incontinence or changes in bowel habits. ED Course: Vitals: BP 136/60 HR 100 RR 28 T 98.2F O2 sat 92% RA, Labs: WBC 23 CMP wnl, In the ED patient received Diazepam 5mg, ketorolac 15mg, morphine 4mg, dexamethasone 10mg PMHx: as above SxHx: Hysterectomy, multiple bilateral shoulder surgery, multiple wrist surgeries for cysts. Social Hx: denies x3 Allergies: phenytoin, quinine, sulfamethoxazole, trimethoprim FHx: unknown. cc:: cc: Mala Bernardo DO Exam Vital Signs Temp Pulse Resp BP Pulse Ox O2 Del Method O2 Flow Rate 97.0 F 89 18 131/73 H 92 L Room Air 2 07/31/25 12:00 07/31/25 12:00 07/31/25 12:00 07/31/25 12:00 07/31/25 12:00 07/31/25 12:00 07/31/25 12:00 Narrative Exam Physical Exam GENERAL: NAD, AAOx3, resting comfortably in bed HEENT: Moist mucosa. Eyes open, symmetrical, & clear CARDIO: Heart RRR, no obvious murmurs PULM: No noted coughing/dyspnea CTA B/L, no R/W/R GI: Abdomen soft, nondistended, no pain on palpation. BSx4 SKIN/MSK/EXT: No wounds/rashes/edema/amputations, no pain on palpation. Pedal pulses present B/L NEURO: AAOx3, no focal neuro deficits, able to move all 4 extremities Results Labs 08/03/25 05:36 08/03/25 05:36 Labs: Short CBC 07/31/25 Range/Units 03:37 WBC 23.0 H (3.6-11.0) Thou/mm3 Hgb 13.7 (12.0-16.0) g/dL Hct 41.5 (36.0-46.0) % Plt Count 241 (140-440) Thou/mm3 BMP 07/31/25 03:37 Sodium 140 Potassium 3.8 Chloride 103 Carbon Dioxide 26.6 BUN 12 Creatinine 0.7 Glucose 176 H Calcium 9.2 Liver Function 07/31/25 Range/Units 03:37 Total Bilirubin 0.7 (0.3-1.2) mg/dL AST 37 H (0-34) U/L ALT 36 (10-49) U/L Alkaline Phosphatase 114 (46-116) U/L Albumin 4.9 H (3.4-4.8) gm/dL Quality Measures Quality Measures none Advance care planning discussed with:: patient Medications Home Medications and Allergies Home Medications ?Medication ?Instructions ?Recorded ?Confirmed ?Type pantoprazole 40 mg tablet,delayed 40 mg PO QDAY ##0 07/31/25 History release (Protonix) atorvastatin 40 mg tablet (Lipitor) 40 mg PO HS #0 tab s 06/16/17 07/31/25 History hydrochlorothiazide 25 mg tablet 25 mg PO QDAY 1 07/31/25 History metformin 1,000 mg tablet 1,000 mg PO QDAY 01/08/21 History alendronate 70 mg tablet 70 mg PO QWEEK 01/09/2107/07 History amlodipine 10 mg tablet 10 mg PO QDAY 03/01/2307/31 History cetirizine 10 mg tablet 10 mg PO QDAY 09/13/2407/31 History ibuprofen 600 mg tablet 600 mg PO Q8H PRN Pain 09/1307/31/25 History duloxetine 30 mg capsule,delayed 30 mg PO BID 07/31/25 07/31/25 History release pregabalin 100 mg capsule 100 mg PO 3XD 07/31/2507/31 History Allergies Allergy/AdvReac Type Severity Reaction Status Date / Time phenytoin Allergy Severe HIVES Verified 09/14/24 08:39 quinine Allergy Severe VOMITING Verified 09/14/24 08:39 sulfamethoxazole Allergy Severe VOMITING Verified 09/14/24 08:39 trimethoprim Allergy Severe VOMITING Verified 09/14/24 08:39 Visit Medications Acetaminophen (Acetaminophen 325 Mg Tablet) 650 mg PO Q6H PRN PRN Reason: Fever >100.4 or pain 1-3 Stop: 08/30/25 04:29 Hydrocodone Bitart/Acetaminophen (Hydrocodone/Apap 5/325 Tablet) 1 tab PO Q4HR PRN PRN Reason: PAIN SCALE 4-6 (Moderate Stop: 08/05/25 04:29 Last Admin: 07/31/25 09:19 Dose: 1 tab Amlodipine Besylate (Amlodipine Besylate 5 Mg Tablet) 10 mg PO QDAY SUNI Stop: 08/30/25 08:59 Last Admin: 07/31/25 09:03 Dose: 10 mg Atorvastatin Calcium (Atorvastatin Calcium 20 Mg Tablet) 40 mg PO HS COUNTS INCLUDE 234 BEDS AT THE [facility] Stop: 08/30/25 20:59 Cyclobenzaprine HCl (Cyclobenzaprine 5 Mg Tablet) 5 mg PO TID SUNI Stop: 08/30/25 13:59 Last Admin: 07/31/25 14:56 Dose: 5 mg Dextrose (Dextrose 50%-Water Inj 50 Ml Syringe) 25 ml IV Q15MIN PRN PRN Reason: BG 50-70 responsive npo pt Stop: 08/30/25 05:01 Dextrose (Dextrose 50%-Water Inj 50 Ml Syringe) 50 ml IV Q15MIN PRN PRN Reason: BG <50 OR BG <70 & pt unresponsive Stop: 08/30/25 05:01 Docusate Sodium (Docusate Sod 100 Mg Capsule) 100 mg PO QDAY SUNI; Protocol Stop: 08/30/25 08:59 Last Admin: 07/31/25 09:03 Dose: 100 mg Duloxetine HCl (Duloxetine Hcl 30 Mg Capsule) 30 mg PO BID SUNI Stop: 08/30/25 08:59 Last Admin: 07/31/25 09:03 Dose: 30 mg Famotidine (Famotidine Inj 10 Mg/Ml Vial 2 Ml) 20 mg IVP Q12HR SUNI Stop: 08/30/25 08:59 Last Admin: 07/31/25 09:04 Dose: 20 mg Glucagon (Glucagon Inj 1 Mg Vial) 1 mg IM Q15MIN PRN PRN Reason: BG <70, and no IV access Heparin Sodium (Porcine) (Heparin Sod Inj 5000 Unit/Ml Vial) 5,000 unit SC Q12HR SUNI Stop: 08/14/25 08:59 Last Admin: 07/31/25 09:04 Dose: 5,000 unit Hydrochlorothiazide (Hydrochlorothiazide 12.5 Mg Capsule) 25 mg PO QDAY COUNTS INCLUDE 234 BEDS AT THE [facility] Stop: 08/30/25 08:59 Last Admin: 07/31/25 09:03 Dose: 25 mg Ceftriaxone Sodium/Dextrose (Rocephin/D5w 1gm Iv Premix) 1 gm in 50 mls @ 100 mls/hr IV QDAY COUNTS INCLUDE 234 BEDS AT THE [facility] Stop: 08/07/25 09:39 Insulin Human Lispro (Insulin Lispro (Admelog) 1 Unit/0.01 Ml Unit) 0 unit SC ACHS COUNTS INCLUDE 234 BEDS AT THE [facility]; Protocol Stop: 08/30/25 07:29 Last Admin: 07/31/25 12:42 Dose: Not Given Lidocaine (Lidocaine 5% 1 Patch) 1 patch TOP QDAY SUNI Stop: 08/30/25 08:59 Last Admin: 07/31/25 09:05 Dose: 1 patch Morphine Sulfate (Morphine Sulf Inj 4 Mg/Ml Vial) 2 mg IVP Q4HR PRN PRN Reason: PAIN SCALE 7-10 (Severe Stop: 08/05/25 04:29 Last Admin: 07/31/25 15:40 Dose: 2 mg Ondansetron HCl (Ondansetron Inj 2 Mg/Ml Inj 2 Ml) 4 mg IVP Q6H PRN; Protocol PRN Reason: NAUSEA OR VOMITING Stop: 08/30/25 04:29 Pregabalin (Pregabalin 50 Mg Capsule) 100 mg PO TID COUNTS INCLUDE 234 BEDS AT THE [facility] Stop: 08/30/25 14:44 Last Admin: 07/31/25 14:56 Dose: 100 mg Discontinued Medications Alendronate Sodium (Alendronate Sodium 70 Mg Tablet) 70 mg PO Q7D SUNI Stop: 08/30/25 05:14 Last Admin: 07/31/25 06:17 Dose: 70 mg Dexamethasone Sodium Phosphate (Dexamethasone Sod Phos Inj 10 Mg/Ml Vial) 10 mg IVP X1 ONE Stop: 07/31/25 01:25 Last Admin: 07/31/25 01:46 Dose: 10 mg Diazepam (Diazepam Inj 5 Mg/Ml Vial 2 Ml) 5 mg IVP X1 ONE Stop: 07/31/25 02:37 Last Admin: 07/31/25 03:29 Dose: 5 mg Gabapentin (Gabapentin 100 Mg Capsule) 100 mg PO TID SUNI Stop: 08/30/25 05:59 Last Admin: 07/31/25 13:41 Dose: 100 mg Ketorolac Tromethamine (Ketorolac Inj 30 Mg/Ml Vial) 15 mg IVP X1 ONE Stop: 07/31/25 01:25 Last Admin: 07/31/25 01:48 Dose: 15 mg Lidocaine (Lidocaine 5% 1 Patch) 1 patch TOP Q8HR PRN PRN Reason: pain 1-10 Stop: 08/30/25 04:38 Morphine Sulfate (Morphine Sulf Inj 4 Mg/Ml Vial) 4 mg IVP X1 ONE Stop: 07/31/25 01:25 Last Admin: 07/31/25 01:48 Dose: 4 mg Assessment & Plan Plan 80yo female pmhx sciatica, osteopenia, DM2 (no insulin), hypertension, hypercholesterolemia, GERD BIBA from home presents to the ED for a chief complaint of intractable lower back pain. Admitted for intractable lower back pain. Patient will need PT eval and pain management. #Intractable Back pain #Hx of sciatica #Hx of osteopenia Patient was doing backward bend stretches as recommended per her physical therapist and was initially fine but gradually got worsening stiffness and pain. Patient denies any falls or injuries, denies urinary or bowel incontinence, no radiation down the legs. MRI lumbar spine: Diffuse lumbar disc desiccation. Moderate degenerative disc disease L1-2, L2-L3, L5-S1 L5-S1 6 mm central lumbar disc bulge contiguous with the S1 nerve roots, L4-L5 severe overall spinal stenosis, axial image 5, 5 mm central lumbar disc bulge, facet arthropathy and thickening of ligamentum flavum circumferentially severely narrowing the thecal sac, L3-L4 no disc protrusion, L2-L3 foraminal disc bulges but no ganglionic compression, L1-L2 no disc protrusion Patient has been having this chronically - PT evaluation and to be continued as an outpatient - Transition IV pain medication to PO route as tolerated - Continue home lyrica and duloxetine - Recommend to ambulate the patient as tolerated - From Neurology standpoint can be discharged and can follow up as OP #Leukocytosis #NIDDM2 #Hx of HTN #Hx of Hypercholesterolemia - as per primary team Case discussed with my attending Dr. Sinan Post MD PGY-2 Attending Provider Attestation/Addendum I personally have seen and examined the patient at the bedside and I agreed with the resident's findings, assessment and plan of care. Continue with current management for pain control. Follow-up with me as an outpatient for doing EMG nerve conduction study of both lower extremities. Patient is waiting for rehab placement.
[2025-07-31] MEDS: cefTRIAXone/D5w 1gm IV premix 1 GM/50 ML BAG IV (17:34)
[2025-07-31 17:38] LABS: Collection Type, Urine Clean Catch
[2025-07-31 17:45] LABS: Bacteria,Urine 1+; Bilirubin,Urine Negative (Negative); Blood,Urine 1+ (Negative); Clarity,Urine Turbid (Clear/Hazy); Color,Urine Lt-Yellow (Lt Yel-Yel); Glucose, Urine Negative (Negative); Ketones,Urine Negative (Negative); Leukocyte Esterase,Urine Positive (Negative); Nitrite,Urine Positive (Negative); PH,Urine 6.5 (5.0-7.0); Protein,Urine Negative (Neg - Trace); RBC,Urine 24 /hpf (0-3); Specific Gravity,Urine 1.011 (1.001-1.035); Squamous Epithelial Cell,Urine 1 /hpf (0-5); Urobilinogen,Urine Negative mg/dL (0.0-1.0); WBC,Urine 37 /hpf (0-5)
[2025-07-31 17:52] LABS: Culture Indicated,Urine Yes
--- NOTE | 2025-07-31 17:56 | ESPR_ITS ---
<Statement entered by Song Gibbs MD - 07/31/25 21:04> Patient was seen and examined at bedside. I agree on the assessment and plan on this note as documented by resident Dr Radha Trammell DO PGY1. 80-year-old female with past medical history as below admitted for intractable back pain, requiring IV pain medication. Patient underwent MRI lumbar spine which shows L5-S1 6 mm central lumbar disc bulge continuous with right and left S1 nerve roots, neurology was consulted is following. Patient started on Flexeril, did receive home dose alendronate overnight. Complains of urinary discomfort, dysuria, incontinence and feeling of incomplete bladder voiding, will obtain urine analysis and urine culture, started on IV ceftriaxone. Anticipate discharge in the next 24 hours post neurology recommendations and pain improvement. Case discussed with attending Dr. Mala Teran MD PGY-2 Documentation for date of: 07/31/25 Subjective Subjective Interval history: MRI, Lumbar spine w/o contrast (07/31/2025) showed L5-S1 6 mm central lumbar disc bulge contiguous with the right and left S1 nerve roots, L4-L5 severe overall spinal stenosis PT eval (07/31/2025) showed 10/10 pain bed motility, 4/10 pain on sitting. Muscle spasm while ambulating. Poor standing balance. Functional decline in bed mobility, transfers and ambulation. High fall risk. Recommended rehab placement for skilled therapy Patient's WBC was 23.0 likely in reaction to IV dexamethasone 10mg x1 that she received in ED. Patient complained of dysuria, urinary incontinence, incomplete bladder voiding. UA (07/31/2025): showed yellow turbid urine, urine blood 1+, urine nitrate positive, urine leukocyte esterase positive, urine RBC 24, urine WBC 37, urine bacteria 1+. Bladder Scan Volume (07/31/2025): 433ml Urine culture is pending. Started on IV Ceftriaxone 1g qd (07/31-) Exam Vital Signs Temp Pulse Resp BP Pulse Ox O2 Del Method O2 Flow Rate 97.1 F 82 18 129/75 92 L Room Air 2 07/31/25 16:00 07/31/25 16:00 07/31/25 16:00 07/31/25 16:00 07/31/25 16:00 07/31/25 16:00 07/31/25 16:00 Narrative Exam GENERAL APPEARANCE: AOx4. Right lateral decubitus to minimize discomfort. NAD, activity normal for age, well developed/ well nourished, no cyanosis, pallor, or diaphoresis. HEENT: Normocephalic atraumatic, no facial trauma, neck is supple. Lids/conjunctiva normal. Mucous membranes moist, nares normal, lips/teeth normal uvula midline without oral pharyngeal erythema, exudate or swelling TMs normal bilaterally. No lymphangitis/lymphedema. CARDIAC: Regular rate and rhythm, S1+S2 heard. No murmurs, rubs, or gallops noted RESPIRATORY: respiratory effort normal, speaks in full sentences, no tripod position, no accessory muscle use. Lungs clear to auscultation without rhonchi, wheezes, rales ABDOMINAL: NBS. Soft, ND/NT. No evidence of fluid wave. No pulsatile masses on exam, rebound tenderness, Bonilla sign or pain over Mcburney's point. MUSCLES/EXTREMITIES: No abnormal range of motion, no swelling. DERM: Warm, pink and dry. No rashes, dermatoses, petechiae or lesions. NEUROLOGICAL: Speech is clear and appropriate. Normal level of consciousness. Gait and coordination are normal. 5/5 strength in all extremities. PSYCH: Normal mood and affect. Judgement/competence is appropriate SPINE: Paraspinal tenderness at lumbral sacral area - improved with palpation. No spinal tenderness. No radiating symptoms. No sensory or motor deficits. Sphincter tone intact. Objective Labs 08/01/25 04:59 08/01/25 04:59 Labs: Laboratory Results - last 24 hr 07/31/25 07/31/25 07/31/25 03:37 03:37 03:37 WBC 23.0 H RBC 4.72 Hgb 13.7 Hct 41.5 MCV 88 MCH 29.0 MCHC 33.0 RDW Std Deviation 46.4 H Plt Count 241 Neut % (Auto) 92 H Lymph % (Auto) 3 L Benzie % (Auto) 5 Eos % (Auto) 0 Baso % (Auto) 0 Neut # (Auto) 21.0 H Lymph # (Auto) 0.6 L Benzie # (Auto) 1.2 H Eos # (Auto) 0.0 Baso # (Auto) 0.0 Immature Gran # (Auto) 0.12 H Absolute Nucleated RBC 0.00 Immature Gran % 1 H Nucleated RBC % 0 Sodium 140 Potassium 3.8 Chloride 103 Carbon Dioxide 26.6 Anion Gap 10 BUN 12 Creatinine 0.7 Estim Creat Clear Calc 54.7 L eGFR > 60 BUN/Creatinine Ratio 17 Glucose 176 H Calculated Osmolality 283 Calcium 9.2 Corrected Calcium 9.2 Phosphorus Cancelled 3.3 Magnesium Cancelled 2.0 Total Bilirubin 0.7 AST 37 H ALT 36 Alkaline Phosphatase 114 Total Protein 6.9 Albumin 4.9 H Globulin 2.0 L Albumin/Globulin Ratio 2.5 H Ur Collection Type Urine Color Urine Clarity Urine pH Ur Specific [place] Urine Protein Urine Glucose (UA) Urine Ketones Urine Blood Urine Nitrite Urine Bilirubin Urine Urobilinogen (Auto) Ur Leukocyte Esterase Urine RBC Urine WBC Ur Squamous Epith Cells Urine Bacteria Ur Culture Indicated? Influenza A (Rapid) Influenza B (Rapid) 07/31/25 07/31/25 06:22 16:54 WBC RBC Hgb Hct MCV MCH MCHC RDW Std Deviation Plt Count Neut % (Auto) Lymph % (Auto) Benzie % (Auto) Eos % (Auto) Baso % (Auto) Neut # (Auto) Lymph # (Auto) Benzie # (Auto) Eos # (Auto) Baso # (Auto) Immature Gran # (Auto) Absolute Nucleated RBC Immature Gran % Nucleated RBC % Sodium Potassium Chloride Carbon Dioxide Anion Gap BUN Creatinine Estim Creat Clear Calc eGFR BUN/Creatinine Ratio Glucose Calculated Osmolality Calcium Corrected Calcium Phosphorus Magnesium Total Bilirubin AST ALT Alkaline Phosphatase Total Protein Albumin Globulin Albumin/Globulin Ratio Ur Collection Type Clean Catch Urine Color Lt-Yellow Urine Clarity Turbid A Urine pH 6.5 Ur Specific [place] 1.011 Urine Protein Negative Urine Glucose (UA) Negative Urine Ketones Negative Urine Blood 1+ A Urine Nitrite Positive Urine Bilirubin Negative Urine Urobilinogen (Auto) Negative Ur Leukocyte Esterase Positive Urine RBC 24 H Urine WBC 37 H Ur Squamous Epith Cells 1 Urine Bacteria 1+ A Ur Culture Indicated? Yes Influenza A (Rapid) Negative Influenza B (Rapid) Negative Quality Measures Quality Measures none Advance care planning discussed with:: patient and other Assessment & Plan Assessment Current Active Medications: Generic Name Dose Route Start Last Admin Trade Name Freq PRN Reason Stop Dose Admin Acetaminophen 650 mg 07/31/25 04:30 Acetaminophen 325 Mg Tablet PO 08/30/25 04:29 Q6H PRN Fever >100.4 or pain 1-3 Hydrocodone Bitart/Acetaminophen 1 tab 07/31/25 04:30 07/31/25 17:43 Hydrocodone/Apap 5/325 Tablet PO 08/05/25 04:29 1 tab Q4HR PRN Administration PAIN SCALE 4-6 (Moderate Amlodipine Besylate 10 mg 07/31/25 09:00 07/31/25 09:03 Amlodipine Besylate 5 Mg Tablet PO 08/30/25 08:59 10 mg QDAY SUNI Administration Atorvastatin Calcium 40 mg 07/31/25 21:00 Atorvastatin Calcium 20 Mg Tablet PO 08/30/25 20:59 HS SUNI Cyclobenzaprine HCl 5 mg 07/31/25 14:00 07/31/25 14:56 Cyclobenzaprine 5 Mg Tablet PO 08/30/25 13:59 5 mg TID SUNI Administration Dextrose 25 ml 07/31/25 05:02 Dextrose 50%-Water Inj 50 Ml Syringe IV 08/30/25 05:01 Q15MIN PRN BG 50-70 responsive npo pt Dextrose 50 ml 07/31/25 05:02 Dextrose 50%-Water Inj 50 Ml Syringe IV 08/30/25 05:01 Q15MIN PRN BG <50 OR BG <70 & pt unresponsive Docusate Sodium 100 mg 07/31/25 09:00 07/31/25 09:03 Docusate Sod 100 Mg Capsule PO 08/30/25 08:59 100 mg QDAY SUNI Administration Protocol Duloxetine HCl 30 mg 07/31/25 09:00 07/31/25 09:03 Duloxetine Hcl 30 Mg Capsule PO 08/30/25 08:59 30 mg BID SUNI Administration Famotidine 20 mg 07/31/25 09:00 07/31/25 09:04 Famotidine Inj 10 Mg/Ml Vial 2 Ml IVP 08/30/25 08:59 20 mg Q12HR SUNI Administration Glucagon 1 mg 07/31/25 05:02 Glucagon Inj 1 Mg Vial IM Q15MIN PRN BG <70, and no IV access Heparin Sodium (Porcine) 5,000 unit 07/31/25 09:00 07/31/25 09:04 Heparin Sod Inj 5000 Unit/Ml Vial SC 08/14/25 08:59 5,000 unit Q12HR SUNI Administration Hydrochlorothiazide 25 mg 07/31/25 09:00 07/31/25 09:03 Hydrochlorothiazide 12.5 Mg Capsule PO 08/30/25 08:59 25 mg QDAY SUNI Administration Ceftriaxone Sodium/Dextrose 1 gm in 50 mls @ 100 mls/hr 07/31/25 09:40 07/31/25 17:34 Rocephin/D5w 1gm Iv Premix IV 08/07/25 09:39 100 mls/hr QDAY SUNI Administration Insulin Human Lispro 0 unit 07/31/25 07:30 07/31/25 16:58 Insulin Lispro (Admelog) 1 Unit/0.01 Ml Unit SC 08/30/25 07:29 Not Given ACHS SUNI Protocol Lidocaine 1 patch 07/31/25 09:00 07/31/25 09:05 Lidocaine 5% 1 Patch TOP 08/30/25 08:59 1 patch QDAY SUNI Administration Morphine Sulfate 2 mg 07/31/25 04:30 07/31/25 15:40 Morphine Sulf Inj 4 Mg/Ml Vial IVP 08/05/25 04:29 2 mg Q4HR PRN Administration PAIN SCALE 7-10 (Severe Ondansetron HCl 4 mg 07/31/25 04:30 Ondansetron Inj 2 Mg/Ml Inj 2 Ml IVP 08/30/25 04:29 Q6H PRN NAUSEA OR VOMITING Protocol Pregabalin 100 mg 07/31/25 14:45 07/31/25 14:56 Pregabalin 50 Mg Capsule PO 08/30/25 14:44 100 mg TID SUNI Administration Plan 80yo female pmhx sciatica, osteopenia, DM2 (no insulin), hypertension, hypercholesterolemia, GERD BIBA from home presents to the ED for a chief complaint of intractable lower back pain. Admitted for intractable lower back pain. Patient will need PT eval and pain management. #Intractable Back pain #Hx of sciatica #Hx of osteopenia -ddx paravertebral muscle cramping, spondylolisthesis, spondylolysis -Sitting in right lateral decubitus position in the [facility] [place] because laying flat on her back was too uncomfortable for her. She states that she was doing backward bend stretches as recommended per her physical therapist and was initially fine but gradually got worsening stiffness and pain. Patient denies any falls or injuries. Denies any abdominal pain or any other associated symptoms. Denies any history of similar symptoms. Patient denies fecal or urinary retention or incontinence. No radiation of pain down the legs. Denies any motor or sensory deficits. Mobility exclusively limited by lwoer back pain. Physical exam had interesting results where she had paraspinal tenderness at lumbral sacral area - improved with palpation. No spinal tenderness. No radiating symptoms. No sensory or motor deficits. Sphincter tone intact. She reports her sensitive areas improved with deep palpation of the muscular paraspinal tissues - like a mini-massage. MRI ordered still pending. Of note patient has a history of sciatica but currently completely denies all radiating symptoms. -MRI, Lumbar spine w/o contrast (07/31/2025): L5-S1 6 mm central lumbar disc bulge contiguous with the right and left S1 nerve roots, L4-L5 severe overall spinal stenosis as above -PT eval (07/31/2025): 10/10 pain bed motility, 4/10 pain on sitting. Muscle spasm while ambulating. Poor standing balance. Functional decline in bed mobility, transfers and ambulation. High fall risk. Recommended rehab placement for skilled therapy Plan: -PT referral placed -Ambulate patient TID -Lidocaine 5% patch QD -Tylenol 650mg PO PRN pain 1-3 -Narco 5 Q4hr PRN pain 4-6 -Morphine inj 2mg IVP Q4hr PRN pain 7-10 -Home duloxetine 30mg PO BID -Home Gabapentin 100mg PO TID -Home alendronate 70 mg PO Q7D #UTI #Leukocytosis -In admission, Patient's WBC was 23.0 likely in reaction to IV dexamethasone 10mg x1 that she received in ED. -Patient complained of dysuria, urinary incontinence, incomplete bladder voiding. -UA (07/31/2025): showed yellow turbid urine, urine blood 1+, urine nitrate positive, urine leukocyte esterase positive, urine RBC 24, urine WBC 37, urine bacteria 1+. -Bladder Scan Volume (07/31/2025): 433ml Plan: -Pending UCx -Started on IV Ceftriaxone 1g qd (07/31-) #DM2 non insulin Metformin 1000mg home Plan: -ISS step 1 -Carb consistent diet #Hx of HTN Plan: -Amlodipine 10mg PO QD -HCTZ 25 mg PO QD #Hx of Hypercholesterolemia Plan: -Atorvastatin 40mg PO HS Health Maintenance: Code status: Full DVT prophylaxis: Heparin subq GI prophylaxis: Famotidine 20mg IVP Q12hr Diet: Carb consistent Beard: Diaper Lines: PIV Supplemental O2: NC Disposition: To med surg for intractable back pain Assessment and plan discussed with my attending physician Dr. Bernardo and Dr. Gibbs (PGY-2) Dr. Trammell (PGY-1) - Internal medicine resident Attending Provider Attestation/Addendum Mala Johnston DO, attest that I was physically present for the choudhury portions of the service and evaluated the patient with the resident and I reviewed and discussed the case with the resident and agree with the resident's findings and plans of care as documented above Patient seen and evaluated this a.m. She had worked with physical therapy this morning and stated that she was able to sit up and stand. However, patient reports pain and back spasms with stretching. She denies any saddle anesthesia or bilateral lower extremity numbness or tingling. She denies any loss of bowel or bladder control. She has had some symptoms of overflow incontinence, but that is reportedly chronic per patient. patient follows neurology outpatient for her lower back pain. An MRI was done this morning showing a 6 mm central lumbar disc bulge contiguous with the right S1 nerve roots at the level of L5- S1. She also has severe spinal stenosis at L4-5. She endorses having dysuria, but denies any fevers. Patient states that she takes only Tylenol at home for pain and no opioids. She stated the pain started several hours after she had work with physical therapy outpatient. Will start patient on Flexeril and follow-up with neurology for recommendations. Continue with pain control as needed. Will follow-up with urine culture
[2025-07-31 18:38] LABS: Amphetamine/Methamp Scrn,U Negative (Negative); Barbiturate Screen,Urine Negative (Negative); Benzodiazepines Screen,Urine Negative (Negative); Benzoylecgonine Screen, Ur Negative (Negative); Fentanyl Screen,Urine Negative (Negative); Opiate Screen,Urine Positive (Negative); THC Screen,Urine Negative (Negative)
[2025-07-31] MEDS: ATORVASTATIN CALCIUM 20 MG TABLET 40 MG PO (21:51)
[2025-08-01] VITALS (9 sets, daily range): BP systolic 111–133; BP diastolic 58–70; PULSE 93–105; RESP 16–20; TEMP 36.2–36.9; O2SAT 90–93; BMI 11.0
[2025-08-01 05:27] LABS: Basophils # (Auto) 0.1 Thou/mm3 (0.0-0.2); Basophils % (Auto) 0 % (0-2.5); Eosinophils # (Auto) 0.1 Thou/mm3 (0.0-0.5); Eosinophils % (Auto) 0 % (0-10); Hematocrit 39.8 % (36.0-46.0); Hemoglobin 13.3 g/dL (12.0-16.0); Immature Granulocytes Auto 0.48 Thou/mm3 (0.00-0.00); Lymphocytes # (Auto) 0.6 Thou/mm3 (1.0-4.8); Lymphocytes % (Auto) 3 % (10-50); Mean Corpuscular HGB Conc 33.4 g/dl (31.0-37.0); Mean Corpuscular Hemoglobin 28.9 pg (25.0-35.0); Mean Corpuscular Volume 86 fL (80-100); Monocytes # (Auto) 1.3 Thou/mm3 (0.0-0.8); Monocytes % (Auto) 5 % (0-12); Neutrophils # (Auto) 22.2 Thou/mm3 (1.8-7.7); Neutrophils % (Auto) 90 % (37-80); Nucleated Red Blood Cell # 0.00 Thou/mm3 (0.00-0.00); Nucleated Red Blood Cell % 0 /100 WBC (0); Platelet Count 210 Thou/mm3 (140-440); RDW Standard Deviation 47.1 fL (36.4-46.3); Red Blood Count 4.61 Miln/mm3 (4.00-5.20); White Blood Count 24.7 Thou/mm3 (3.6-11.0)
[2025-08-01] MEDS: PREGABALIN 50 MG CAPSULE 100 MG PO ×3 (05:37→21:24)
[2025-08-01] MEDS: HYDROcodone/APAP 5/325 TABLET 1 TAB PO (05:45)
[2025-08-01 05:48] LABS: Alanine Aminotransferase 25 U/L (10-49); Albumin, Serum 4.5 gm/dL (3.4-4.8); Albumin/Globulin Ratio 2.0 (1.2-2.2); Alkaline Phosphatase 102 U/L (46-116); Anion Gap 11 (7-16); Aspartate Amino Transferase 22 U/L (0-34); BUN/Creatinine Ratio 21 Ratio (12-20); Bilirubin,Total 0.7 mg/dL (0.3-1.2); Blood Urea Nitrogen 17 mg/dL (9-23); Calcium 9.1 mg/dL (8.3-10.6); Calcium (Corrected) 9.1 mg/dL (8.5-10.1); Carbon Dioxide 26.1 mMol/L (20.0-31.0); Chloride 99 mMol/L (98-107); Creatinine (Component) 0.8 mg/dL (0.6-1.3); Estimated Creatinine Clearance 47.8 mL/min (>60); Globulin 2.2 gm/dL (2.3-3.5); Glucose 165 mg/dL (74-106); Magnesium 2.1 mg/dL (1.6-2.6); Osmolality,Calculated 277 (275-295); Phosphorous 3.1 mg/dL (2.4-5.1); Potassium 3.7 mMol/L (3.4-5.1); Sodium 136 mMol/L (136-145); Total Protein 6.7 gm/dL (5.7-8.2); eGFR > 60 See Note
[2025-08-01] MEDS: cefTRIAXone/D5w 1gm IV premix 1 GM/50 ML BAG IV (08:46)
[2025-08-01] MEDS: DULoxetine HCL 30 MG CAPSULE PO ×2 (08:47→20:16)
[2025-08-01] MEDS: HEPARIN SOD INJ 5000 UNIT/ML VIAL SC ×2 (08:48→20:16)
[2025-08-01] MEDS: LIDOCAINE 5% 1 PATCH TOP (08:51)
--- NOTE | 2025-08-01 10:04 | PC.SS ---
SS met with pt to discuss d/c plan to SNF. SS was informed by resident physician PT is recommending SNF. SS met to inform her and is agreeable to SNF. Patient's preference is [facility] if the accept. SS has sent inquiry to the local SNF using [facility].
--- NOTE | 2025-08-01 11:19 | PC.SS ---
SS met with bedside nurse, Suma who states pt is on Cymbalta for depression but does not have diagnosis for depression. MARK Crisostomo has completed PASRR assessment and pt is level 2.
--- NOTE | 2025-08-01 16:17 | ESPR_ITS ---
<Statement entered by Song Gibbs MD - 08/01/25 18:13> Patient was seen and examined at bedside. I agree on the assessment and plan on this note as documented by resident Dr Radha Trammell DO PGY1. 80-year-old female with past medical history as below admitted for intractable back pain patient working with physical therapy reports symptoms have improved. PT recommends discharge to group home facility, patient will need 3 midnights for placement. Pending urine culture, will continue with IV ceftriaxone. Anticipate discharge on Tuesday AM. Case discussed with attending Dr. Mala Teran MD PGY-2 Documentation for date of: 08/01/25 Subjective Subjective Interval history: Patient still has lower back pain. Patient pain controlled by Tylenol. Flexeril 5 mg p.o. 3 times daily did help lessen her lower back pain. However patient noted that it would help if she was prescribed opioid pain medication as needed on discharge so that she can use if pain gets much worse. Will continue IV ceftriaxone 1 g daily. Urine culture still pending. Patient noted that her urinary symptoms has improved. Patient wishes to be discharged to SNF instead of home, for recovery. Expected to be discharged within 24 to 48hrs. No Overnight events. Labs reviewed and patient examined at the bedside. Denies chest pain, palpation, SOB, abdominal pain, N/V, fevers or chills. Exam Vital Signs Temp Pulse Resp BP Pulse Ox O2 Del Method O2 Flow Rate 97.4 F 95 18 113/69 93 L Nasal Cannula 2 08/01/25 12:00 08/01/25 15:20 08/01/25 15:20 08/01/25 12:00 08/01/25 15:20 08/01/25 12:00 08/01/25 15:20 Narrative Exam GENERAL APPEARANCE: AOx4. Right lateral decubitus to minimize discomfort. NAD, activity normal for age, well developed/ well nourished, no cyanosis, pallor, or diaphoresis. HEENT: Normocephalic atraumatic, no facial trauma, neck is supple. Lids/conjunctiva normal. Mucous membranes moist, nares normal, lips/teeth normal uvula midline without oral pharyngeal erythema, exudate or swelling TMs normal bilaterally. No lymphangitis/lymphedema. CARDIAC: Regular rate and rhythm, S1+S2 heard. No murmurs, rubs, or gallops noted RESPIRATORY: respiratory effort normal, speaks in full sentences, no tripod position, no accessory muscle use. Lungs clear to auscultation without rhonchi, wheezes, rales ABDOMINAL: NBS. Soft, ND/NT. No evidence of fluid wave. No pulsatile masses on exam, rebound tenderness, Bonilla sign or pain over Mcburney's point. MUSCLES/EXTREMITIES: No abnormal range of motion, no swelling. DERM: Warm, pink and dry. No rashes, dermatoses, petechiae or lesions. NEUROLOGICAL: Speech is clear and appropriate. Normal level of consciousness. Gait and coordination are normal. 5/5 strength in all extremities. PSYCH: Normal mood and affect. Judgement/competence is appropriate SPINE: Paraspinal tenderness at lumbral sacral area - improved with palpation. No spinal tenderness. No radiating symptoms. No sensory or motor deficits. Sphincter tone intact. Objective Labs 08/02/25 05:35 08/02/25 05:35 Labs: Laboratory Results - last 24 hr 07/31/25 08/01/25 16:54 04:59 WBC 24.7 H RBC 4.61 Hgb 13.3 Hct 39.8 MCV 86 MCH 28.9 MCHC 33.4 RDW Std Deviation 47.1 H Plt Count 210 D Neut % (Auto) 90 H Lymph % (Auto) 3 L [place] % (Auto) 5 Eos % (Auto) 0 Baso % (Auto) 0 Neut # (Auto) 22.2 H Lymph # (Auto) 0.6 L [place] # (Auto) 1.3 H Eos # (Auto) 0.1 Baso # (Auto) 0.1 Immature Gran # (Auto) 0.48 H Absolute Nucleated RBC 0.00 Immature Gran % 2 H Nucleated RBC % 0 Sodium 136 Potassium 3.7 Chloride 99 Carbon Dioxide 26.1 Anion Gap 11 BUN 17 Creatinine 0.8 Estim Creat Clear Calc 47.8 L eGFR > 60 BUN/Creatinine Ratio 21 H Glucose 165 H Calculated Osmolality 277 Calcium 9.1 Corrected Calcium 9.1 Phosphorus 3.1 Magnesium 2.1 Total Bilirubin 0.7 AST 22 ALT 25 Alkaline Phosphatase 102 Total Protein 6.7 Albumin 4.5 Globulin 2.2 L Albumin/Globulin Ratio 2.0 Ur Collection Type Clean Catch Urine Color Lt-Yellow Urine Clarity Turbid A Urine pH 6.5 Ur Specific [place] 1.011 Urine Protein Negative Urine Glucose (UA) Negative Urine Ketones Negative Urine Blood 1+ A Urine Nitrite Positive Urine Bilirubin Negative Urine Urobilinogen (Auto) Negative Ur Leukocyte Esterase Positive Urine RBC 24 H Urine WBC 37 H Ur Squamous Epith Cells 1 Urine Bacteria 1+ A Ur Culture Indicated? Yes Urine Opiates Screen Positive A Urine Fentanyl Screen Negative Ur Barbiturates Screen Negative U Amphetamin/Meth Scrn Negative U Benzodiazepines Scrn Negative U Cocaine Metab Screen Negative U Marijuana (THC) Screen Negative Quality Measures Quality Measures VTE prophylaxis Advance care planning discussed with:: patient and other Assessment & Plan Assessment Current Active Medications: Generic Name Dose Route Start Last Admin Trade Name Freq PRN Reason Stop Dose Admin Acetaminophen 650 mg 07/31/25 04:30 Acetaminophen 325 Mg Tablet PO 08/30/25 04:29 Q6H PRN Fever >100.4 or pain 1-3 Hydrocodone Bitart/Acetaminophen 1 tab 08/01/25 07:44 Hydrocodone/Apap 5/325 Tablet PO 08/05/25 04:29 Q4HR PRN PAIN SCALE 4-10(Mod-Sev Amlodipine Besylate 10 mg 07/31/25 09:00 08/01/25 08:47 Amlodipine Besylate 5 Mg Tablet PO 08/30/25 08:59 10 mg QDAY SUNI Administration Atorvastatin Calcium 40 mg 07/31/25 21:00 07/31/25 21:51 Atorvastatin Calcium 20 Mg Tablet PO 08/30/25 20:59 40 mg HS SUNI Administration Cyclobenzaprine HCl 5 mg 07/31/25 14:00 08/01/25 13:29 Cyclobenzaprine 5 Mg Tablet PO 08/30/25 13:59 5 mg TID SUNI Administration Dextrose 25 ml 07/31/25 05:02 Dextrose 50%-Water Inj 50 Ml Syringe IV 08/30/25 05:01 Q15MIN PRN BG 50-70 responsive npo pt Dextrose 50 ml 07/31/25 05:02 Dextrose 50%-Water Inj 50 Ml Syringe IV 08/30/25 05:01 Q15MIN PRN BG <50 OR BG <70 & pt unresponsive Docusate Sodium 100 mg 07/31/25 09:00 08/01/25 08:48 Docusate Sod 100 Mg Capsule PO 08/30/25 08:59 Not Given QDAY SUNI Protocol Duloxetine HCl 30 mg 07/31/25 09:00 08/01/25 08:47 Duloxetine Hcl 30 Mg Capsule PO 08/30/25 08:59 30 mg BID SUNI Administration Famotidine 20 mg 07/31/25 09:00 08/01/25 08:46 Famotidine Inj 10 Mg/Ml Vial 2 Ml IVP 08/30/25 08:59 Not Given Q12HR SUNI Glucagon 1 mg 07/31/25 05:02 Glucagon Inj 1 Mg Vial IM Q15MIN PRN BG <70, and no IV access Heparin Sodium (Porcine) 5,000 unit 07/31/25 09:00 08/01/25 08:48 Heparin Sod Inj 5000 Unit/Ml Vial SC 08/14/25 08:59 5,000 unit Q12HR SUNI Administration Hydrochlorothiazide 25 mg 07/31/25 09:00 08/01/25 08:47 Hydrochlorothiazide 12.5 Mg Capsule PO 08/30/25 08:59 25 mg QDAY SUNI Administration Ceftriaxone Sodium/Dextrose 1 gm in 50 mls @ 100 mls/hr 07/31/25 09:40 08/01/25 08:46 Rocephin/D5w 1gm Iv Premix IV 08/07/25 09:39 100 mls/hr QDAY [facility] Administration Insulin Human Lispro 0 unit 07/31/25 07:30 08/01/25 11:11 Insulin Lispro (Admelog) 1 Unit/0.01 Ml Unit SC 08/30/25 07:29 Not Given ACHS SUNI Protocol Lidocaine 1 patch 07/31/25 09:00 08/01/25 08:51 Lidocaine 5% 1 Patch TOP 08/30/25 08:59 1 patch QDAY SUNI Administration Ondansetron HCl 4 mg 07/31/25 04:30 Ondansetron Inj 2 Mg/Ml Inj 2 Ml IVP 08/30/25 04:29 Q6H PRN NAUSEA OR VOMITING Protocol Pregabalin 100 mg 07/31/25 14:45 08/01/25 13:29 Pregabalin 50 Mg Capsule PO 08/30/25 14:44 100 mg TID SUNI Administration Plan 80yo female pmhx sciatica, osteopenia, DM2 (no insulin), hypertension, hypercholesterolemia, GERD BIBA from home presents to the ED for a chief complaint of intractable lower back pain. Admitted for intractable lower back pain. Patient will need PT eval and pain management. #Intractable Back pain #Hx of sciatica #Hx of osteopenia -ddx paravertebral muscle cramping, spondylolisthesis, spondylolysis -Sitting in right lateral decubitus position in the gurney because laying flat on her back was too uncomfortable for her. She states that she was doing backward bend stretches as recommended per her physical therapist and was initially fine but gradually got worsening stiffness and pain. Patient denies any falls or injuries. Denies any abdominal pain or any other associated symptoms. Denies any history of similar symptoms. Patient denies fecal or urinary retention or incontinence. No radiation of pain down the legs. Denies any motor or sensory deficits. Mobility exclusively limited by lwoer back pain. Physical exam had interesting results where she had paraspinal tenderness at lumbral sacral area - improved with palpation. No spinal tenderness. No radiating symptoms. No sensory or motor deficits. Sphincter tone intact. She reports her sensitive areas improved with deep palpation of the muscular paraspinal tissues - like a mini-massage. MRI ordered still pending. Of note patient has a history of sciatica but currently completely denies all radiating symptoms. -MRI, Lumbar spine w/o contrast (07/31/2025): L5-S1 6 mm central lumbar disc bulge contiguous with the right and left S1 nerve roots, L4-L5 severe overall spinal stenosis as above -PT eval (07/31/2025): 10/10 pain bed motility, 4/10 pain on sitting. Muscle spasm while ambulating. Poor standing balance. Functional decline in bed mobility, transfers and ambulation. High fall risk. Recommended rehab placement for skilled therapy Plan: -Flexeril 5 mg p.o. 3 times daily -PT referral placed -Ambulate patient TID -Lidocaine 5% patch QD -Tylenol 650mg PO PRN pain 1-3 -Narco 5 Q4hr PRN pain 4-6 -Morphine inj 2mg IVP Q4hr PRN pain 7-10 -Home duloxetine 30mg PO BID -Home Gabapentin 100mg PO TID -Discontinued Home alendronate 70 mg PO Q7D #UTI #Leukocytosis -In admission, Patient's WBC was 23.0 likely in reaction to IV dexamethasone 10mg x1 that she received in ED. -Patient complained of dysuria, urinary incontinence, incomplete bladder voiding. -UA (07/31/2025): showed yellow turbid urine, urine blood 1+, urine nitrate positive, urine leukocyte esterase positive, urine RBC 24, urine WBC 37, urine bacteria 1+. -Bladder Scan Volume (07/31/2025): 433ml Plan: -Pending UCx -Started on IV Ceftriaxone 1g qd (07/31-) #DM2 non insulin Metformin 1000mg home Plan: -ISS step 1 -Carb consistent diet #Hx of HTN Plan: -Amlodipine 10mg PO QD -HCTZ 25 mg PO QD #Hx of Hypercholesterolemia Plan: -Atorvastatin 40mg PO HS Health Maintenance: Code status: Full DVT prophylaxis: Heparin subq GI prophylaxis: Famotidine 20mg IVP Q12hr Diet: Carb consistent Beard: Diaper Lines: PIV Supplemental O2: NC Disposition: To med surg for intractable back pain Assessment and plan discussed with my attending physician Dr. Bernardo and Dr. Gibbs (PGY-2) Dr. Trammell (PGY-1) - Internal medicine resident Attending Provider Attestation/Addendum I, Mala Bernardo DO, attest that I was physically present for the choudhury portions of the service and evaluated the patient with the resident and I reviewed and discussed the case with the resident and agree with the resident's findings and plans of care as documented above Patient seen and evaluated this AM. Patient reports some improvement of pain with flexeril. However, she is interested in going to SNF as recommended by PT. She takes tylenol at home for back pain, but would like to have the option of stronger pain medication if severe pain recurs. She does not have any focal neurological deficits. Pending Ucx at this time. Case discussed with social media campaign manager regarding patient's preference regarding SNF. Anticipate DC within next 24h once SNF is arranged. Leukocytosis 2/2 decadron given upon presentation to ED.
[2025-08-01] MEDS: ATORVASTATIN CALCIUM 20 MG TABLET 40 MG PO (20:15)
[2025-08-01] MEDS: FAMOTIDINE INJ 10 MG/ML VIAL 2 ML 20 MG IVP (20:16)
[2025-08-02] VITALS (9 sets, daily range): BP systolic 114–137; BP diastolic 67–92; PULSE 93–114; RESP 16–19; TEMP 36.1–36.6; O2SAT 91–101; BMI 11.0
[2025-08-02] MEDS: HYDROcodone/APAP 5/325 TABLET 1 TAB PO (01:11)
[2025-08-02] MEDS: PREGABALIN 50 MG CAPSULE 100 MG PO ×3 (05:15→22:07)
[2025-08-02 05:54] LABS: Basophils # (Auto) 0.0 Thou/mm3 (0.0-0.2); Basophils % (Auto) 0 % (0-2.5); Eosinophils # (Auto) 0.0 Thou/mm3 (0.0-0.5); Eosinophils % (Auto) 0 % (0-10); Hematocrit 40.1 % (36.0-46.0); Hemoglobin 13.5 g/dL (12.0-16.0); Immature Granulocytes Auto 0.14 Thou/mm3 (0.00-0.00); Lymphocytes # (Auto) 0.7 Thou/mm3 (1.0-4.8); Lymphocytes % (Auto) 4 % (10-50); Mean Corpuscular HGB Conc 33.7 g/dl (31.0-37.0); Mean Corpuscular Hemoglobin 28.8 pg (25.0-35.0); Mean Corpuscular Volume 86 fL (80-100); Monocytes # (Auto) 0.9 Thou/mm3 (0.0-0.8); Monocytes % (Auto) 6 % (0-12); Neutrophils # (Auto) 14.6 Thou/mm3 (1.8-7.7); Neutrophils % (Auto) 89 % (37-80); Nucleated Red Blood Cell # 0.00 Thou/mm3 (0.00-0.00); Nucleated Red Blood Cell % 0 /100 WBC (0); Platelet Count 185 Thou/mm3 (140-440); RDW Standard Deviation 45.6 fL (36.4-46.3); Red Blood Count 4.69 Miln/mm3 (4.00-5.20); White Blood Count 16.5 Thou/mm3 (3.6-11.0)
[2025-08-02 06:20] LABS: Alanine Aminotransferase 25 U/L (10-49); Albumin, Serum 4.4 gm/dL (3.4-4.8); Albumin/Globulin Ratio 1.8 (1.2-2.2); Alkaline Phosphatase 112 U/L (46-116); Anion Gap 11 (7-16); Aspartate Amino Transferase 28 U/L (0-34); BUN/Creatinine Ratio 21 Ratio (12-20); Bilirubin,Total 1.0 mg/dL (0.3-1.2); Blood Urea Nitrogen 17 mg/dL (9-23); Calcium 9.4 mg/dL (8.3-10.6); Calcium (Corrected) 9.4 mg/dL (8.5-10.1); Carbon Dioxide 26.3 mMol/L (20.0-31.0); Chloride 99 mMol/L (98-107); Creatinine (Component) 0.8 mg/dL (0.6-1.3); Estimated Creatinine Clearance 47.8 mL/min (>60); Globulin 2.4 gm/dL (2.3-3.5); Glucose 144 mg/dL (74-106); Magnesium 2.2 mg/dL (1.6-2.6); Osmolality,Calculated 276 (275-295); Phosphorous 3.2 mg/dL (2.4-5.1); Potassium 3.4 mMol/L (3.4-5.1); Sodium 136 mMol/L (136-145); Total Protein 6.8 gm/dL (5.7-8.2); eGFR > 60 See Note
[2025-08-02] MEDS: cefTRIAXone/D5w 1gm IV premix 1 GM/50 ML BAG IV (08:15)
[2025-08-02] MEDS: FAMOTIDINE INJ 10 MG/ML VIAL 2 ML 20 MG IVP (08:15)
[2025-08-02] MEDS: DULoxetine HCL 30 MG CAPSULE PO ×2 (08:15→20:08)
[2025-08-02] MEDS: LIDOCAINE 5% 1 PATCH TOP (08:15)
[2025-08-02] MEDS: DOCUSATE SOD 100 MG CAPSULE PO (08:16)
[2025-08-02] MEDS: HEPARIN SOD INJ 5000 UNIT/ML VIAL SC ×2 (08:17→20:12)
--- NOTE | 2025-08-02 10:21 | PC.SS ---
Follow up note: SS spoke to Albina Day from [facility] who explained they are able to accept pt tomorrow.
--- NOTE | 2025-08-02 11:23 | ESPR_ITS ---
<Statement entered by Song Gibbs MD - 08/03/25 05:30> Patient was seen and examined at bedside. I agree on the assessment and plan on this note as documented by resident Dr Radha Trammell DO PGY1. Patient seen and examined at bedside, complains of some back pain Flexeril was increased to 10 3 times daily however later in the day patient is confused per assessment, likely hospital-acquired delirium will hold [place] and will decrease Flexeril back to 5 3 times daily. Pending urine cultures otherwise patient is stable, anticipate discharge in a.m. to long-term facility. Case discussed with attending Dr. Cindi Gibbs MD PGY-2 Documentation for date of: 08/02/25 Subjective Subjective Interval history: Patient still has the urinary incontinence, dysuria, and sensation of incomplete voiding, as well as lower back pain, but she noted that she had these problems for many years and currently is back to baseline. This afternoon, patient's family noted the patient began experiencing hallucinations and speaking incoherently about unrelated topics. The patient was not agitated during these episodes. Decreased the Flexeril dosage to 5mg po tid from 10. Discontinued [place] 5. The clinical picture raises concern for hospital acquired delirium, possibly exacerbated by extended periods of immobility related to her back pain. The patient is likely to benefit from placement in a SNF, where she can receive regular physical therapy as well as assisted and encouraged ambulation. Based on patient's stability, she will be discharged to SNF within next 24 to 48 hrs. No Overnight events. Labs reviewed and patient examined at the bedside. Denies chest pain, palpation, SOB, abdominal pain, N/V, fevers or chills. Exam Vital Signs Temp Pulse Resp BP Pulse Ox O2 Del Method O2 Flow Rate 97.4 F 101 H 18 114/92 H 101 H Room Air 2 08/02/25 08:00 08/02/25 08:16 08/02/25 08:00 08/02/25 08:16 08/02/25 08:00 08/02/25 08:00 08/01/25 15:20 Narrative Exam GENERAL APPEARANCE: AOx4. Right lateral decubitus to minimize discomfort. NAD, activity normal for age, well developed/ well nourished, no cyanosis, pallor, or diaphoresis. HEENT: Normocephalic atraumatic, no facial trauma, neck is supple. Lids/conjunctiva normal. Mucous membranes moist, nares normal, lips/teeth normal uvula midline without oral pharyngeal erythema, exudate or swelling TMs normal bilaterally. No lymphangitis/lymphedema. CARDIAC: Regular rate and rhythm, S1+S2 heard. No murmurs, rubs, or gallops noted RESPIRATORY: respiratory effort normal, speaks in full sentences, no tripod position, no accessory muscle use. Lungs clear to auscultation without rhonchi, wheezes, rales ABDOMINAL: NBS. Soft, ND/NT. No evidence of fluid wave. No pulsatile masses on exam, rebound tenderness, Bonilla sign or pain over Mcburney's point. MUSCLES/EXTREMITIES: No abnormal range of motion, no swelling. DERM: Warm, pink and dry. No rashes, dermatoses, petechiae or lesions. NEUROLOGICAL: Speech is clear and appropriate. Normal level of consciousness. Gait and coordination are normal. 5/5 strength in all extremities. PSYCH: Normal mood and affect. Judgement/competence is appropriate SPINE: Paraspinal tenderness at lumbral sacral area - improved with palpation. No spinal tenderness. No radiating symptoms. No sensory or motor deficits. Sphincter tone intact. Objective Labs 08/02/25 05:35 08/02/25 05:35 Labs: Laboratory Results - last 24 hr 08/02/25 05:35 WBC 16.5 H D RBC 4.69 Hgb 13.5 Hct 40.1 MCV 86 MCH 28.8 MCHC 33.7 RDW Std Deviation 45.6 Plt Count 185 Neut % (Auto) 89 H Lymph % (Auto) 4 L [place] % (Auto) 6 Eos % (Auto) 0 Baso % (Auto) 0 Neut # (Auto) 14.6 H Lymph # (Auto) 0.7 L [place] # (Auto) 0.9 H Eos # (Auto) 0.0 Baso # (Auto) 0.0 Immature Gran # (Auto) 0.14 H Absolute Nucleated RBC 0.00 Immature Gran % 1 H Nucleated RBC % 0 Sodium 136 Potassium 3.4 Chloride 99 Carbon Dioxide 26.3 Anion Gap 11 BUN 17 Creatinine 0.8 Estim Creat Clear Calc 47.8 L eGFR > 60 BUN/Creatinine Ratio 21 H Glucose 144 H Calculated Osmolality 276 Calcium 9.4 Corrected Calcium 9.4 Phosphorus 3.2 Magnesium 2.2 Total Bilirubin 1.0 AST 28 ALT 25 Alkaline Phosphatase 112 Total Protein 6.8 Albumin 4.4 Globulin 2.4 Albumin/Globulin Ratio 1.8 Quality Measures Quality Measures VTE prophylaxis Advance care planning discussed with:: patient and other Assessment & Plan Assessment Current Active Medications: Generic Name Dose Route Start Last Admin Trade Name Freq PRN Reason Stop Dose Admin Acetaminophen 650 mg 07/31/25 04:30 Acetaminophen 325 Mg Tablet PO 08/30/25 04:29 Q6H PRN Fever >100.4 or pain 1-3 Hydrocodone Bitart/Acetaminophen 1 tab 08/01/25 07:44 08/02/25 01:11 Hydrocodone/Apap 5/325 Tablet PO 08/05/25 04:29 1 tab Q4HR PRN Administration PAIN SCALE 4-10(Mod-Sev Amlodipine Besylate 10 mg 07/31/25 09:00 08/02/25 08:16 Amlodipine Besylate 5 Mg Tablet PO 08/30/25 08:59 10 mg QDAY SUNI Administration Atorvastatin Calcium 40 mg 07/31/25 21:00 08/01/25 20:15 Atorvastatin Calcium 20 Mg Tablet PO 08/30/25 20:59 40 mg HS SUNI Administration Cyclobenzaprine HCl 5 mg 07/31/25 14:00 08/02/25 05:15 Cyclobenzaprine 5 Mg Tablet PO 08/30/25 13:59 5 mg TID SUNI Administration Dextrose 25 ml 07/31/25 05:02 Dextrose 50%-Water Inj 50 Ml Syringe IV 08/30/25 05:01 Q15MIN PRN BG 50-70 responsive npo pt Dextrose 50 ml 07/31/25 05:02 Dextrose 50%-Water Inj 50 Ml Syringe IV 08/30/25 05:01 Q15MIN PRN BG <50 OR BG <70 & pt unresponsive Docusate Sodium 100 mg 07/31/25 09:00 08/02/25 08:16 Docusate Sod 100 Mg Capsule PO 08/30/25 08:59 100 mg QDAY SUNI Administration Protocol Duloxetine HCl 30 mg 07/31/25 09:00 08/02/25 08:15 Duloxetine Hcl 30 Mg Capsule PO 08/30/25 08:59 30 mg BID SUNI Administration Famotidine 20 mg 07/31/25 09:00 08/02/25 08:15 Famotidine Inj 10 Mg/Ml Vial 2 Ml IVP 08/30/25 08:59 20 mg Q12HR SUNI Administration Glucagon 1 mg 07/31/25 05:02 Glucagon Inj 1 Mg Vial IM Q15MIN PRN BG <70, and no IV access Heparin Sodium (Porcine) 5,000 unit 07/31/25 09:00 08/02/25 08:17 Heparin Sod Inj 5000 Unit/Ml Vial SC 08/14/25 08:59 5,000 unit Q12HR SUNI Administration Hydrochlorothiazide 25 mg 07/31/25 09:00 08/02/25 08:16 Hydrochlorothiazide 12.5 Mg Capsule PO 08/30/25 08:59 25 mg QDAY SUNI Administration Ceftriaxone Sodium/Dextrose 1 gm in 50 mls @ 100 mls/hr 07/31/25 09:40 08/02/25 08:15 Rocephin/D5w 1gm Iv Premix IV 08/07/25 09:39 100 mls/hr QDAY SUNI Administration Insulin Human Lispro 0 unit 07/31/25 07:30 08/02/25 11:16 Insulin Lispro (Admelog) 1 Unit/0.01 Ml Unit SC 08/30/25 07:29 Not Given ACHS SUNI Protocol Lidocaine 1 patch 07/31/25 09:00 08/02/25 08:15 Lidocaine 5% 1 Patch TOP 08/30/25 08:59 1 patch QDAY SUNI Administration Morphine Sulfate 2 mg 08/01/25 18:11 Morphine Sulf Inj 4 Mg/Ml Vial IVP Q4HR PRN BREAKTHROUGH PAIN (SEVERE) Protocol Ondansetron HCl 4 mg 07/31/25 04:30 Ondansetron Inj 2 Mg/Ml Inj 2 Ml IVP 08/30/25 04:29 Q6H PRN NAUSEA OR VOMITING Protocol Pregabalin 100 mg 07/31/25 14:45 08/02/25 05:15 Pregabalin 50 Mg Capsule PO 08/30/25 14:44 100 mg TID SUNI Administration Plan 80yo female pmhx sciatica, osteopenia, DM2 (no insulin), hypertension, hypercholesterolemia, GERD BIBA from home presents to the ED for a chief complaint of intractable lower back pain. Admitted for intractable lower back pain. Patient will need PT eval and pain management. #Intractable Back pain #Hx of sciatica #Hx of osteopenia -ddx paravertebral muscle cramping, spondylolisthesis, spondylolysis -Sitting in right lateral decubitus position in the [facility] because laying flat on her back was too uncomfortable for her. She states that she was doing backward bend stretches as recommended per her physical therapist and was initially fine but gradually got worsening stiffness and pain. Patient denies any falls or injuries. Denies any abdominal pain or any other associated symptoms. Denies any history of similar symptoms. Patient denies fecal or urinary retention or incontinence. No radiation of pain down the legs. Denies any motor or sensory deficits. Mobility exclusively limited by lwoer back pain. Physical exam had interesting results where she had paraspinal tenderness at lumbral sacral area - improved with palpation. No spinal tenderness. No radiating symptoms. No sensory or motor deficits. Sphincter tone intact. She reports her sensitive areas improved with deep palpation of the muscular paraspinal tissues - like a mini-massage. MRI ordered still pending. Of note patient has a history of sciatica but currently completely denies all radiating symptoms. -MRI, Lumbar spine w/o contrast (07/31/2025): L5-S1 6 mm central lumbar disc bulge contiguous with the right and left S1 nerve roots, L4-L5 severe overall spinal stenosis as above -PT eval (07/31/2025): 10/10 pain bed motility, 4/10 pain on sitting. Muscle spasm while ambulating. Poor standing balance. Functional decline in bed mobility, transfers and ambulation. High fall risk. Recommended rehab placement for skilled therapy Plan: -Flexeril 5 mg p.o. 3 times daily -PT referral placed -Ambulate patient TID -Lidocaine 5% patch QD -Tylenol 650mg PO PRN pain 1-3 -Discontinued [place] 5 Q4hr PRN pain 4-6 -Home duloxetine 30mg PO BID -Home Gabapentin 100mg PO TID -Discontinued Home alendronate 70 mg PO Q7D #UTI #Leukocytosis -In admission, Patient's WBC was 23.0 likely in reaction to IV dexamethasone 10mg x1 that she received in ED. -Patient complained of dysuria, urinary incontinence, incomplete bladder voiding. -UA (07/31/2025): showed yellow turbid urine, urine blood 1+, urine nitrate positive, urine leukocyte esterase positive, urine RBC 24, urine WBC 37, urine bacteria 1+. -Bladder Scan Volume (07/31/2025): 433ml Plan: -Pending UCx -Started on IV Ceftriaxone 1g qd (07/31-) #Hospital Acquired Delirium -08/02: Patient's family noted the patient began experiencing hallucination and speaking incoherently about unrelated topics. The patient was not agitated during these episodes. Decreased the Flexeril dosage to 5mg po tid from 10. Discontinued [place] 5. -Possibly exacerbated by extended periods of immobility related to her back pain. -The patient is likely to benefit from placement in a SNF, where she can receive regular physical therapy as well as assisted and encouraged ambulation. #DM2 non insulin Metformin 1000mg home Plan: -ISS step 1 -Carb consistent diet #Hx of HTN Plan: -Amlodipine 10mg PO QD -HCTZ 25 mg PO QD #Hx of Hypercholesterolemia Plan: -Atorvastatin 40mg PO HS Health Maintenance: Code status: Full DVT prophylaxis: Heparin subq GI prophylaxis: Famotidine 20mg IVP Q12hr Diet: Carb consistent Beard: Diaper Lines: PIV Supplemental O2: NC Disposition: To med surg for intractable back pain Assessment and plan discussed with my attending physician Dr. Puente and Dr. Gibbs (PGY-2) Dr. Trammell (PGY-1) - Internal medicine resident Attending Provider Attestation/Addendum Patient is here in the hospital for intractable back pain. She has been through a spinal surgeon in [place] where she got shots. This was several months ago. Her daughter is at bedside and she gave me this information. The daughter is concerned about her delirium. She has no reported bowel or bladder symptoms. Continue supportive treatment. I discussed with and supervised the resident physician who took care of this patient. I agree with the assessment and plan as above.
--- NOTE | 2025-08-02 14:01 | PC.NURSE ---
Family came to nurses station suspecting pt may have fever. Temperature currently 98.7 with no signs of distress
--- NOTE | 2025-08-02 16:27 | PC.SS ---
Family requested to speak with SS. SS met with pt and family regarding SNF options. Family is aware pt has been accepted to local SNF and [facility]. Family is aware patient's choice is [facility]. Family is considering a different SNF. Family is aware to notify SS of their choice for SNF.
[2025-08-02] MEDS: FAMOTIDINE 20 MG TABLET PO (20:07)
[2025-08-02] MEDS: ATORVASTATIN CALCIUM 20 MG TABLET 40 MG PO (20:07)
[2025-08-03] VITALS (7 sets, daily range): BP systolic 116–133; BP diastolic 71–81; PULSE 76–110; RESP 18–20; TEMP 36.2–36.3; O2SAT 93–94
[2025-08-03] MEDS: PREGABALIN 50 MG CAPSULE 100 MG PO (05:55)
[2025-08-03] MEDS: Artificial Tears 225 DROP/15 ML BTL BOTH EYES (06:10)
[2025-08-03 06:32] LABS: Basophils # (Auto) 0.0 Thou/mm3 (0.0-0.2); Basophils % (Auto) 0 % (0-2.5); Eosinophils # (Auto) 0.1 Thou/mm3 (0.0-0.5); Eosinophils % (Auto) 1 % (0-10); Hematocrit 38.2 % (36.0-46.0); Hemoglobin 13.0 g/dL (12.0-16.0); Immature Granulocytes Auto 0.07 Thou/mm3 (0.00-0.00); Lymphocytes # (Auto) 0.7 Thou/mm3 (1.0-4.8); Lymphocytes % (Auto) 5 % (10-50); Mean Corpuscular HGB Conc 34.0 g/dl (31.0-37.0); Mean Corpuscular Hemoglobin 29.7 pg (25.0-35.0); Mean Corpuscular Volume 87 fL (80-100); Monocytes # (Auto) 1.1 Thou/mm3 (0.0-0.8); Monocytes % (Auto) 8 % (0-12); Neutrophils # (Auto) 12.3 Thou/mm3 (1.8-7.7); Neutrophils % (Auto) 86 % (37-80); Nucleated Red Blood Cell # 0.00 Thou/mm3 (0.00-0.00); Nucleated Red Blood Cell % 0 /100 WBC (0); Platelet Count 179 Thou/mm3 (140-440); RDW Standard Deviation 47.1 fL (36.4-46.3); Red Blood Count 4.37 Miln/mm3 (4.00-5.20); White Blood Count 14.2 Thou/mm3 (3.6-11.0)
[2025-08-03 06:55] LABS: Alanine Aminotransferase 26 U/L (10-49); Albumin, Serum 4.3 gm/dL (3.4-4.8); Albumin/Globulin Ratio 2.0 (1.2-2.2); Alkaline Phosphatase 126 U/L (46-116); Anion Gap 13 (7-16); Aspartate Amino Transferase 34 U/L (0-34); BUN/Creatinine Ratio 23 Ratio (12-20); Bilirubin,Total 1.1 mg/dL (0.3-1.2); Blood Urea Nitrogen 16 mg/dL (9-23); Calcium 9.7 mg/dL (8.3-10.6); Calcium (Corrected) 9.7 mg/dL (8.5-10.1); Carbon Dioxide 25.4 mMol/L (20.0-31.0); Chloride 98 mMol/L (98-107); Creatinine (Component) 0.7 mg/dL (0.6-1.3); Estimated Creatinine Clearance 54.6 mL/min (>60); Globulin 2.2 gm/dL (2.3-3.5); Glucose 140 mg/dL (74-106); Magnesium 2.3 mg/dL (1.6-2.6); Osmolality,Calculated 275 (275-295); Phosphorous 2.9 mg/dL (2.4-5.1); Potassium 3.4 mMol/L (3.4-5.1); Sodium 136 mMol/L (136-145); Total Protein 6.5 gm/dL (5.7-8.2); eGFR > 60 See Note
[2025-08-03] MEDS: cefTRIAXone/D5w 1gm IV premix 1 GM/50 ML BAG IV (08:53)
[2025-08-03] MEDS: DULoxetine HCL 30 MG CAPSULE PO (08:54)
[2025-08-03] MEDS: HEPARIN SOD INJ 5000 UNIT/ML VIAL SC (08:54)
[2025-08-03] MEDS: LIDOCAINE 5% 1 PATCH TOP (08:54)
[2025-08-03] MEDS: FAMOTIDINE 20 MG TABLET PO (08:55)
[2025-08-03] MEDS: DOCUSATE SOD 100 MG CAPSULE PO (08:55)
--- NOTE | 2025-08-03 09:47 | EKG_ITS ---
[facility] Test Date: 2025-08-03 Pat Name: MATT LEMON [facility] Gender[facility] Chemical Process Operator: JASON : 1945 Requested By: Song Gibbs Order Number: [id number] Reading MD: Song Gibbs Measurements Intervals [place] Rate: 108 P: 46 AK: 142 QRS: 67 QRSD: 92 T: 37 QT: 316 QTc: 425 Interpretive Statements SINUS TACHYCARDIA WITH OCCASIONAL SUPRAVENTRICULAR PREMATURE COMPLEXES ABNORMAL RHYTHM ECG Compared to ECG 09/28/2024 10:03:15 Sinus rhythm no longer present Myocardial infarct finding no longer present /store/S0/[id number]/[id number].pdf
--- NOTE | 2025-08-03 13:00 | PC.SS ---
[facility] LVL 2 closed, SS reached out to [facility] who is ready to accept pt. Updated clinicals sent via [facility]AR[facility]. Pending orders, attempt to reach Team B, no answer. ETA set for 1600 with [facility] #[id number]
--- NOTE | 2025-08-03 14:48 | PC.SS ---
Addendum entered by Pinky Richards 08/03/25 15:37: Rosanna received call from [facility] ETA set for 1600 Original Note: SS was informed by RN, Ursula, pt fam decided on [facility] vs [facility]. SS met with family and pt at bedside and due to distance of [facility] they prefer [facility]. SS contacted Tiffany at [facility] who can accept pt today. SS attempted to call Albina at who didnt answer. VM left. SS also messaged them, no response. SS called [facility] to update location change, as well as Rosanna at [place] who stated she needs to receiev a call from [facility] first.
--- NOTE | 2025-08-03 15:19 | ESDS_ITS ---
Planned Discharge Date 08/03/25 DS: Providers Provider Date of admission: 07/31/25 04:30 Primary care physician: Kimberly Pereyra PA-C Admitting Provider: Elsi Putnam MD Attending Provider on Admission: Mala Bernardo DO Consults: 07/31/25 04:34 Referral Physical Therapy Routine Comment: Physician Instructions: 07/31/25 10:12 Consult to Neurology / Tele-Neurology Routine Comment: Consulting Provider: Davidson Menon Attending Provider on DC: Gerardo Arellano DO Discharging Provider: Gerardo Arellano DO Anticipated date of discharge: 08/03/25 DS: Diagnosis Problem List Completed Was Problem List Reviewed/Reconciled?: Yes Hospital Course Hospital Course Hospital course: Hospital Course: 80-year-old female with past medical history of hypertension, osteopenia, sciatica, sxj-maellze-uqlgeicmo diabetes mellitus, hypercholesterolemia and GERD who presented to [facility] emergency department on 07/31/2025 with a chief complaint of lower back pain. Patient admitted to the hospital for further management, found to have urinary tract infection urine culture was ordered which resulted as Klebsiella pneumonia sensitive to ceftriaxone which was started on admission. During the hospitalization course neurology was consulted due to patient's history of spinal stenosis and disc bulge, lumbar spine MRI obtained showed L5-S1 6 mm central lumbar disc bulge contiguous with right and left S1 nerve roots. L4-L5 severe overall spinal stenosis as well. Neurology was consulted for the hospitalization they recommended physical therapy and halfway facility placement. PT was consulted during the hospitalization and patient requires moderate assistance hence decision was made to transfer patient to halfway facility for maximum functional mobility. Authorization obtained for halfway facility and patient was discharged, patient to continue antibiotic treatment with cefpodoxime. Patient is stable for discharge, responded well to hospital treatment. Discharge Diagnosis: #Klebsiella pneumonia UTI #Leukocytosis #Lumbar disc bulge L5-S1, 6 mm #Sciatica #L4-L5 severe spinal stenosis #Severe back pain #Hospital-acquired delirium, resolved #Type 2 diabetes mellitus [id number]-bywtrmpau #Hypertension #Hypercholesterolemia #GERD #Osteopenia on bisphosphonates Case discussed with Attending Physician Dr. Gerardo Teran MD Internal Medicine PGY-2 Disclaimer: This note was dictated by speech recognition. Minor errors in sliver chopper may be present due to voice recognition software. Time Spent with Patient Time attestation: Total time spent providing and/or coordinating discharge services: Greater than 30 minutes Time spent: Greater than 30 minutes Exam Vital Signs Temp Pulse Resp BP Pulse Ox O2 Del Method O2 Flow Rate 97.3 F 80 20 116/78 94 L Nasal Cannula 4 08/03/25 11:08/03/25 11:08/03/25 11:08/03/25 11:08/03/25 11:08/03/25 11:08/03/25 11: Narrative Exam GENERAL APPEARANCE: AOx4. NAD, activity normal for age, well developed/ well nourished, no cyanosis, pallor, or diaphoresis. HEENT: Normocephalic atraumatic, no facial trauma, neck is supple. Lids/conjunctiva normal. Mucous membranes moist, nares normal, lips/teeth normal uvula midline without oral pharyngeal erythema, exudate or swelling TMs normal bilaterally. No lymphangitis/lymphedema. CARDIAC: Regular rate and rhythm, S1+S2 heard. No murmurs, rubs, or gallops noted RESPIRATORY: respiratory effort normal, speaks in full sentences, no tripod position, no accessory muscle use. Lungs clear to auscultation without rhonchi, wheezes, rales ABDOMINAL: NBS. Soft, ND/NT. No evidence of fluid wave. No pulsatile masses on exam, rebound tenderness, Bonilla sign or pain over Mcburney's point. MUSCLES/EXTREMITIES: No abnormal range of motion, no swelling. DERM: Warm, pink and dry. No rashes, dermatoses, petechiae or lesions. NEUROLOGICAL: Speech is clear and appropriate. Normal level of consciousness. Gait and coordination are normal. 5/5 strength in all extremities. PSYCH: Normal mood and affect. Judgement/competence is appropriate SPINE: Paraspinal tenderness at lumbral sacral area - improved with palpation. No spinal tenderness. No radiating symptoms. No sensory or motor deficits. Sphincter tone intact. Discharge Plan Plan Patient Disposition: Xfer Skilled Nsg Fac (SNF) Disposition Comment: [facility] Patient condition on transfer: Stable Care Plan Goals: - You were seen and admitted to [facility] for intractable back pain, we did an MRI of your back it showed L5-S1 central lumbar disc bulge and L4-L5 severe overall spinal stenosis, it was reviewed by her neurologist, per neurology you are stable for discharge. Recommend follow up with a spine neurosurgeon. Continue PT. - Recommend physical therapy outpatient, follow-up with neurology outpatient for further management. - You were also found to have a urinary tract infection complete your antibiotic course with Cefpodoxime for 3 more days - We have prescribed Flexeril and lidocaine patches that you can use to manage her pain. - Follow-up with your primary care physician within 1 week, return to emergency department if your symptoms worsen. Prescriptions/Referrals Prescriptions/Med Rec: New cyclobenzaprine 5 mg Tablet 5 mg PO TID PRN (Reason: Back Pain) 30 Days Qty: 90 0RF lidocaine 5 % Adhesive Patch,Medicated 1 patch top QDAY 30 Days Qty: 30 0RF cefpodoxime 100 mg tablet 100 mg PO BID 3 Days Qty: 6 0RF Rx Instructions: must administer with a meal/food Continued amlodipine 10 mg tablet 10 mg PO QDAY pantoprazole [Protonix] 40 MG tablet,delayed release (DR/EC) 40 mg PO QDAY Qty: 0 Patient Comments: TO SUPPRESS GASTRIC SECRETIONS atorvastatin [Lipitor] 40 MG tablet 40 mg PO HS Qty: 0 metformin 1,000 mg Tablet 1,000 mg PO QDAY hydrochlorothiazide 25 mg tablet 25 mg PO QDAY alendronate 70 mg tablet 70 mg PO QWEEK cetirizine 10 mg Tablet 10 mg PO QDAY ibuprofen 600 mg Tablet 600 mg PO Q8H PRN (Reason: Pain) pregabalin 100 mg capsule 100 mg PO 3XD duloxetine 30 mg capsule,delayed release(DR/EC) 30 mg PO BID Patient Comments: TAKE ONE CAPSULE BY MOUTH ONCE DAILY FOR 7 DAYS THEN TAKE ONE CAPSULE BY MOUTH TWICE DAILY THEREAFTER Referrals: Davidson Menon MD [Physician, Neurology] Kimberly Pereyra PA-C [Primary Care Provider, Family Practice] Patient/Caregiver Discharge Instructions Discharge Activity: as per physical therapy Education Materials: Anatomy of a Normal Spine, Back Basics: A Healthy Spine Print Language: Greek Stand Alone Forms: [employer] Award Info., Patient Portal Info Letter Discharge Order Discharge Orders: Discharge (Routine); Ordered 08/03/25 Ordered By: Song Gibbs Quality Discharge Quality Measures none MD Attestestation MD Attestation I have discussed and was present for the essential components of the discharge history, physical examination, diagnosis, and discharge treatment plan with the resident. I agree with the patient's discharge care as documented by the resident and amended herein by me. Jaskaran Arellano DO. The patient understood all discharge instructions, all questions were answered satisfactorily. The patient was instructed to return to the Emergency Department is symptoms worsened or persisted. Patient was stable, afebrile, tolerating p.o. intake at time of discharge to SNF Although this document has been carefully reviewed, there may still be some phonetic and other typographical errors. These errors are purely grammatical due to imperfections in the software program and should not be construed in any way to compromise the substance of the patient's medical care during this visit.
== END 2025-08-03 16:00 | disposition skilled nursing facility (03) | DRG 689 ==
LOC: SERX 04:36 → SERHOLD 04:42 → S3NX 05:27
PROVIDERS: Admitting Provider Student in an Organized Health Care Education/Training Program; Emergency Provider Emergency Medicine; PCP Physician Assistant; Visit Provider Internal Medicine
DX: N39.0 Urinary tract infection, site not specified (principal); J15.0 Pneumonia due to Klebsiella pneumoniae; F05 Delirium due to known physiological condition; D72.829 Elevated white blood cell count, unspecified; M85.80 Other specified disorders of bone density and structure, unspecified site; E11.9 Type 2 diabetes mellitus without complications; I10 Essential (primary) hypertension; R32 Unspecified urinary incontinence; E78.00 Pure hypercholesterolemia, unspecified; M54.30 Sciatica, unspecified side; K21.9 Gastro-esophageal reflux disease without esophagitis; Z79.84 Long term (current) use of oral hypoglycemic drugs; Z79.83 Long term (current) use of bisphosphonates; Z79.899 Other long term (current) drug therapy; T38.0X5A Adverse effect of glucocorticoids and synthetic analogues, initial encounter; Z90.710 Acquired absence of both cervix and uterus; Z91.81 History of falling; M48.061 Spinal stenosis, lumbar region without neurogenic claudication; Z88.8 Allergy status to other drugs, medicaments and biological substances; Z88.2 Allergy status to sulfonamides
CPT/HCPCS: 36415; 71045; 72148; 80053; 80307; 81001; 83735; 84100; 85025; 87077; 87086; 87186; 87502; 87811; 93005; 96374; 96375; 97162; 99283; J0696; J1100; J1644; J1815; J1885; J2270; J3360; J3490; A9270